=== PATIENT | female | born 1940 | race Caucasian/White ===

== ENCOUNTER 2016-09-05 09:15 | Inpatient (IN) | payer MEDICARE, OTHER ==
[~2016-09-05 09:15] MED LIST: Bisacodyl 5 MG Tab PO PRN; Lidocaine 1%/Sod Bicarbonate in NS 8.4% 1 ML Syringe IV PRN; Morphine 2 MG/ML Syringe IVPUSH PRN; Ondansetron 4 MG/2 ML SDV IVPUSH PRN; Sodium Chloride 0.9% 10 ML Syringe FLUSH PRN
[2016-09-05] MEDS ORDERED: Diphtheria,Pertussis(Acell),Tetanus Vaccine 0.5 ML SDV inactive IM ONE (10:17)
[2016-09-05] MEDS: Lactated Ringers 1,000 ML IV SCH ×2 (10:30→14:22)
--- NOTE | 2016-09-05 10:58 | PCM.PREANE ---
Preanesthetic Assessment - Anesthesia/Transfusion/Family Hx Anesthesia History: Prior Anesthesia Without Reaction Type of Anesthesia Reaction: Unknown Family History of Anesthesia Reaction: No Transfusion History: No Prior Transfusion(s) - Review of Systems General: No Symptoms Pulmonary: Shortness of Breath (pt has been worked up, negative results thus far. CXR neg), Other (BRAVO, CPAP at night) Cardiovascular: No Symptoms (able to climb flight of stairs), Other (increased lipids, chronic lower extremity edema. 2-3+ pitting edema, left worse than right ) Gastrointestinal: Other (GERD, well controlled on meds) Neurological: Other (back pain) Other: Reports: Diabetes (blood glucose 124), Thyroid Problems - Physical Assessment NPO Status Date: 09/05/16 NPO Status Time: 02:05 Pulse: 67 O2 Sat by Pulse Oximetry: 97 Respiratory Rate: 16 Blood Pressure: 161/74 Temperature: 36.0 C Height: 1.57 m Weight: 104.326 kg ASA Class: 3 Mental Status: Alert & Oriented x3 Airway Class: Mallampati = 3 Dentition: Reports: Normal Dentition Thyro-Mental Finger Breadths: 2 Mouth Opening Finger Breadths: 3 ROM/Head Extension: Limited/Partial Lungs: Clear to auscultation, Normal respiratory effort Cardiovascular: Regular Rate, Regular Rhythm - Lab Values: Laboratory Last Values PT 10.5 SECONDS (8.0-13.0) 08/31/16 12:43 INR 0.97 08/31/16 12:43 APTT 26 SECONDS (22-36) 08/31/16 12:43 MRSA (PCR) Negative 08/24/16 15:03 - Allergies Allergies/Adverse Reactions: Allergies Allergy/AdvReac Type Severity Reaction Status Date / Time amlodipine [From Norvasc] Allergy Swelling Verified 09/02/16 11:18 Beta-Blockers Allergy Cough Verified 09/02/16 11:18 (Beta-Adrenergic Bloc levofloxacin [From Levaquin] Allergy Hives Verified 09/02/16 11:18 sitagliptin Allergy Nausea Verified 09/02/16 11:18 - Blood Blood Available: No Product(s) Available: None - Anesthesia Plan Pre-Op Medication Ordered: None Beta Reyna: Atenolol Med Last Dose Date: 09/05/16 Med Last Dose Time: 07:30 - Acknowledgements Anesthesia Type Planned: Spinal Pt an Appropriate Candidate for the Planned Anesthesia: Yes Alternatives and Risks of Anesthesia Discussed w Pt/Guardian: Yes Pt/Guardian Understands and Agrees with Anesthesia Plan: Yes PreAnesthesia Questionnaire HEENT History: Reports: Impaired vision, Other (see below) Other HEENT History: throat pain Cardiovascular History: Reports: High cholesterol, Hypertension, Other (see below) Other Cardiovascular History: bradycardia, chest pain, pericardial cyst and pericardial effusion Respiratory History: Reports: Bronchitis, recurrent, Sleep apnea, SOB Other Respiratory History: dypsnea Gastrointestinal History: Reports: Colon polyp, GERD, Helicobacter pylori, Other (see below) Other Gastrointestinal History: abdominal pain Genitourinary History: Reports: Other (see below) Other Genitourinary History: CKD III, breast lump mass, vaginal leukorrhea, vaginitis 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 Musculoskeletal History: Reports: Other (see below) Other Musculoskeletal History: back ache, cericlagia, joint pain, OA, shoulder sprain, arthritis Neurological History: Reports: None Psychiatric History: Reports: None Endocrine/Metabolic History: Reports: Diabetes, type II, Hypothyroidism, Obesity /BMI 30+ Hematologic History: Reports: Other (see below) Other Hematologic History: hypokalemia Immunologic History: Reports: None Oncologic (Cancer) History: Reports: None Dermatologic History: Reports: Other (see below) Other Dermatologic History: lipomas, seborrheic dermatitis, middle R finger excsion, gangion removed from R finger - Past Surgical History Head Surgeries/Procedures: Reports: None HEENT Surgical History: Reports: Cataract surgery, Tonsillectomy GI Surgical History: Reports: Colonoscopy Female Surgical History: Reports: Breast biopsy - SUBSTANCE USE Smoking Status *Q: Never Smoker Second Hand Smoke Exposure: No Recreational Drug Use History: No - HOME MEDS Home Medications: Home Meds Aspirin [Halfprin] 81 mg PO DAILY 11/26/14 [History] Atenolol 50 mg PO DAILY 11/26/14 [History] Furosemide [Lasix] 80 mg PO BID 11/26/14 [History] Levothyroxine [Synthroid] 50 mcg PO DAILY 11/26/14 [History] Omeprazole [Prilosec] 20 mg PO DAILY 11/26/14 [History] Potassium Chloride 30 mg PO QPM 11/26/14 [History] Potassium Chloride 40 mg PO QAM 07/29/15 [History] Calcium Carb & Citrate/Vit D3 [Calcium + D3 ER Tablet] 1 tab PO BID 01/16/16 [ History] metFORMIN [Glucophage XR] 250 mg PO BID 01/16/16 [History] Albuterol [IJD: Ventolin HFA] 1 - 2 puff INH Q4H PRN 09/02/16 [History] Doxazosin Mesylate [Doxazosin Mesylate] 1 mg PO BEDTIME 09/02/16 [History] Fish Oil/[place]-3 Fatty Acids [Fish Oil 1,000 MG] 1,000 mg PO DAILY 09/02/16 [ History] Gluc HCl/Csa/Kay Hy/Hyalur Ac [Glucosamine Chondroitin] 1 cap PO BID 09/02/16 [ History] Losartan [Cozaar] 100 mg PO DAILY 09/02/16 [History] - CURRENT (IN HOUSE) MEDS Current Meds: Current Medications Aspirin (Ecotrin) 325 mg PO BID [facility] Bisacodyl (Dulcolax) 5 mg PO DAILY PRN PRN Reason: Constipation Morphine Sulfate 8 mg/Epinephrine HCl 0.3 mg/Cefuroxime Sodium 750 mg/Ketorolac Tromethamine 30 mg/Sodium Chloride 27.9 ml 0 mg .XX ONETIME ONE Stop: 09/05/16 12:01 Cyclobenzaprine HCl (Flexeril) 10 mg PO TID PRN PRN Reason: Spasms Docusate Sodium (Colace) 100 mg PO BID [facility] Famotidine (Pepcid) 20 mg PO Q12H [facility] Lactated Ringer's (Ringers, Lactated) 1,000 mls @ 125 mls/hr IV ASDIRECTED [facility] Cefazolin Sodium/Dextrose 2 gm (/ Premix) 50 mls @ 100 mls/hr IV Q8H [facility] Stop: 09/05/16 23:44 Lidocaine/Sodium Bicarbonate (Buffered Lidocaine 1% In Ns 8.4%) 0.25 ml IV ONETIME PRN PRN Reason: Prior to IV Start Stop: 09/05/16 16:00 Magnesium Hydroxide (Milk Of Magnesia) 30 ml PO BID PRN PRN Reason: Constipation Morphine Sulfate (Morphine) 2 mg IVPUSH Q2H PRN PRN Reason: Breakthrough Pain Naloxone HCl (Narcan) 0.1 mg IVPUSH Q5M PRN PRN Reason: Oversedation Stop: 09/05/16 14:16 Ondansetron HCl (Zofran) 4 mg IVPUSH Q6H PRN PRN Reason: Nausea/Vomiting Oxycodone/Acetaminophen (Percocet 325-5 Mg) 1 - 2 tab PO Q4H PRN PRN Reason: Pain Senna (Senna) 8.6 mg PO BID PRN PRN Reason: Constipation Sodium Chloride (Saline Flush) 10 ml FLUSH ASDIRECTED PRN PRN Reason: Keep Vein Open Stop: 09/05/16 18:00 Discontinued Medications Diphtheria/Tetanus/Acell Pertussis (Boostrix) 0.5 ml IM .ONCE ONE Stop: 09/05/16 10:18
[2016-09-05] MEDS ORDERED: Ondansetron 4 MG/2 ML SDV IVPUSH PRN (11:07)
[2016-09-05] MEDS ORDERED: diphenhydrAMINE 50 MG/ML SDV IVPUSH PRN (11:07)
[2016-09-05] MEDS ORDERED: Metoclopramide 10 MG/2 ML SDV IVPUSH PRN (11:07)
[2016-09-05] MEDS ORDERED: fentaNYL 100 MCG/2 ML SDV IVPUSH PRN (11:07)
[2016-09-05] MEDS ORDERED: ceFAZolin 1 GM Vial ONE (11:31)
[2016-09-05] MEDS ORDERED: fentaNYL 100 MCG/2 ML SDV ONE (11:37)
[2016-09-05] MEDS ORDERED: Propofol 200 MG/20 ML SDV ONE ×5 (11:37→13:28)
[2016-09-05] MEDS ORDERED: Midazolam 1 MG/ML 2 ML SDV ONE (11:37)
[2016-09-05] MEDS ORDERED: Morphine PF 10 MG/10 ML SDV ONE (11:39)
[2016-09-05] MEDS ORDERED: Scopolamine 1.5 MG Transdermal Patch TOP SCH (11:45)
[2016-09-05] MEDS ORDERED: HYDROmorphone 0.5 MG/0.5 ML Syringe IVPUSH PRN (12:15)
[2016-09-05] MEDS: Bupivacaine 0.25% 30 ML SDV ONE ×2 (12:54→13:28)
[2016-09-05] MEDS: Morphine 8 MG, EPINEPHrine 0.3 MG, Cefuroxime 750 MG, Ketorolac 30 MG, Sodium Chloride ... ONE ×15 (12:55→17:47)
[2016-09-05] MEDS: Iodine/Sodium Iodide 2% Tincture 30 ML Bottle ONE ×2 (12:55→13:22)
[2016-09-05] MEDS ORDERED: Lactated Ringers 1,000 ML ONE (12:56)
[2016-09-05] MEDS: ceFAZolin 1 GM Vial ONE ×2 (12:57→13:25)
[2016-09-05] MEDS ORDERED: Albuterol 6.7 GM Inhaler INH PRN (13:31)
[2016-09-05] MEDS ORDERED: Naloxone 0.4 MG/ML SDV IVPUSH PRN (14:00)
--- NOTE | 2016-09-05 14:12 | PCM.POSTAN ---
POST ANESTHESIA ASSESSMENT - MENTAL STATUS Mental Status: alert, oriented - VITAL SIGNS Pulse Rate: 77 SaO2: 94 Resp Rate: 16 Blood Pressure: 106/51 Temperature: 36.5 C - RESPIRATORY Respiratory Status: respiratory rate WNL, airway patent, O2 saturation stable, supplemental oxygen - CARDIOVASCULAR CV Status: pulse rate WNL, blood pressure stable - GASTROINTESTINAL GI Status: no symptoms - PAIN Pain Score: 0 - POST OP HYDRATION Hydration Status: adequate & stable
--- NOTE | 2016-09-05 14:40 | CR ---
Left knee: AP and lateral views of the left knee were obtained. Comparison: No previous knee exam. Knee prosthesis is seen. Components are aligned. Underlying bony structures are intact. Soft tissue air is noted. Air noted within the joint. Impression: 1. Satisfactory postoperative radiographic appearance of recently placed left knee prosthesis. Diagnostic code #2
--- NOTE | 2016-09-05 16:50 | PCM.CONSN ---
- General Info Date of Service: 09/05/16 Admission Dx/Problem (Free Text): 76 year old female PMH: HTN, DM, CKD stage II, GERD, hypolipidemia, morbid obesity is post op, s/p left total hip arthroplasty. The patient is very nauseated. Hospitalist service is assisting with medical management and chronic health related concerns outside of the realm of orthopedics Functional Status: Reports: pain controlled, urinating - Review of Systems General: Reports: No Symptoms HEENT: Reports: no symptoms Pulmonary: Reports: no symptoms Cardiovascular: Reports: No Symptoms Gastrointestinal: Reports: Nausea, Vomiting Genitourinary: Reports: no symptoms Musculoskeletal: Reports: no symptoms Skin: Reports: no symptoms Neurological: Reports: No Symptoms Psychiatric: Reports: no symptoms - Patient Data Vitals - most recent: Last Vital Signs Temp 36.2 C 09/05/16 14:19 Pulse 73 09/05/16 15:03 Resp 14 09/05/16 15:03 BP 138/67 09/05/16 15:03 Pulse Ox 95 09/05/16 15:03 Weight - most recent: 102.512 kg I&O - last 24 hours: Intake & Output 09/05/16 09/05/16 09/05/16 06:59 14:59 22:59 Intake Total 310 Output Total 50 Balance -50 310 Lab Results last 24 hrs: Laboratory Results - last 24 hr 09/05/16 09/05/16 09/05/16 Range/Units 10:52 11:01 14:36 Sodium 143 (136-145) mEq/L Potassium 4.0 (3.5-5.1) mEq/L Chloride 105 (98-107) mEq/L Carbon Dioxide 28 (21-32) mEq/L Anion Gap 14.0 (5-15) BUN 18 (7-18) mg/dL Creatinine 1.0 (0.55-1.02) mg/dL Est Cr Clr Drug Dosing 38.44 mL/min Estimated GFR (MDRD) 54 (>60) mL/min BUN/Creatinine Ratio 18.0 (14-18) Glucose 131 H (83-115) mg/dL POC Glucose 124 H 122 H (83-110) mg/dL Calcium 9.9 (8.5-10.1) mg/dL Med Orders - Current: Current Medications Albuterol (Proventil Hfa) 1 - 2 gm INH Q4H PRN PRN Reason: Shortness of Breath Aspirin (Ecotrin) 325 mg PO BID [facility] Atenolol (Tenormin) 50 mg PO DAILY [facility] Bisacodyl (Dulcolax) 5 mg PO DAILY PRN PRN Reason: Constipation Calcium Carbonate (Calcium Carbonate/Vitamin D 1500 Mg-200 Unit) 1 tab PO BID [facility] Cyclobenzaprine HCl (Flexeril) 10 mg PO TID PRN PRN Reason: Spasms Diphenhydramine HCl (Benadryl) 25 mg IVPUSH Q6H PRN PRN Reason: itching Stop: 09/05/16 18:00 Docusate Sodium (Colace) 100 mg PO BID [facility] Doxazosin Mesylate (Cardura) 1 mg PO BEDTIME [facility] Furosemide (Lasix) 80 mg PO BID [facility] Cefazolin Sodium/Dextrose 2 gm (/ Premix) 50 mls @ 100 mls/hr IV Q8H [facility] Stop: 09/06/16 11:59 Promethazine HCl 12.5 mg/ (Sodium Chloride) 50.5 mls @ 100 mls/hr IV Q6H [facility] Levothyroxine Sodium (Synthroid) 50 mcg PO DAILY [facility] Losartan Potassium (Cozaar) 100 mg PO DAILY [facility] Magnesium Hydroxide (Milk Of Magnesia) 30 ml PO BID PRN PRN Reason: Constipation Metformin HCl (Glucophage) 250 mg PO BID [facility] Miscellaneous Information (Remove Patch) 0 ea TRDERM ONETIME ONE Stop: 09/08/16 11:46 Morphine Sulfate (Morphine) 2 mg IVPUSH Q2H PRN PRN Reason: Breakthrough Pain Ondansetron HCl (Zofran) 4 mg IVPUSH Q6H PRN PRN Reason: Nausea/Vomiting Ondansetron HCl (Zofran) 4 mg IVPUSH ONETIME PRN PRN Reason: Nausea/Vomiting Stop: 09/05/16 18:00 Last Admin: 09/05/16 15:13 Dose: 4 mg Oxycodone/Acetaminophen (Percocet 325-5 Mg) 1 - 2 tab PO Q4H PRN PRN Reason: Pain Pantoprazole Sodium (Protonix) 40 mg PO DAILY [facility] Potassium Chloride (Klor-Con 10) 30 meq PO QPM [facility] Potassium Chloride (Klor-Con M20) 40 meq PO QAM [facility] Scopolamine (Transderm-Scop) 1.5 mg TOP ONETIME [facility] Stop: 09/05/16 18:00 Last Admin: 09/05/16 11:55 Dose: 1.5 mg Senna (Senna) 8.6 mg PO BID PRN PRN Reason: Constipation Sodium Chloride (Saline Flush) 10 ml FLUSH ASDIRECTED PRN PRN Reason: Keep Vein Open Stop: 09/05/16 18:00 Discontinued Medications Bupivacaine HCl (Marcaine 0.25%) Confirm Administered Dose 30 ml .ROUTE .STK- MED ONE Stop: 09/05/16 11:32 Last Admin: 09/05/16 13:28 Dose: 30 ml Cefazolin Sodium (Ancef) Confirm Administered Dose 2 gm .ROUTE .STK-MED ONE Stop: 09/05/16 11:37 Last Admin: 09/05/16 13:25 Dose: 2 gm Cefazolin Sodium (Ancef) Confirm Administered Dose 2 gm .ROUTE .STK-MED ONE Stop: 09/05/16 11:32 Morphine Sulfate 8 mg/Epinephrine HCl 0.3 mg/Cefuroxime Sodium 750 mg/Ketorolac Tromethamine 30 mg/Sodium Chloride 27.9 ml 0 mg .XX ONETIME ONE Stop: 09/05/16 12:01 Last Admin: 09/05/16 13:28 Dose: 788.3 mg Diphtheria/Tetanus/Acell Pertussis (Boostrix) 0.5 ml IM .ONCE ONE Stop: 09/05/16 10:18 Famotidine (Pepcid) 20 mg PO Q12H [facility] Fentanyl (Sublimaze) 50 mcg IVPUSH Q5M PRN PRN Reason: pain Stop: 09/05/16 18:00 Fentanyl (Sublimaze) Confirm Administered Dose 100 mcg .ROUTE .STK-MED ONE Stop: 09/05/16 11:38 Hydromorphone HCl (Dilaudid) 0.5 mg IVPUSH Q15M PRN PRN Reason: Pain (severe 7-10) Stop: 09/05/16 12:31 Lactated Ringer's (Ringers, Lactated) 1,000 mls @ 125 mls/hr IV ASDIRECTED [facility] Last Admin: 09/05/16 14:22 Dose: 125 mls/hr Lactated Ringer's (Ringers, Lactated) Confirm Administered Dose 1,000 mls @ as directed .ROUTE .STK-MED ONE Stop: 09/05/16 12:57 Iodine (Iodine 2% Mild Tincture) Confirm Administered Dose 30 ml .ROUTE .STK- MED ONE Stop: 09/05/16 11:32 Last Admin: 09/05/16 13:22 Dose: 18 ml Lidocaine/Sodium Bicarbonate (Buffered Lidocaine 1% In Ns 8.4%) 0.25 ml IV ONETIME PRN PRN Reason: Prior to IV Start Stop: 09/05/16 16:00 Last Admin: 09/05/16 10:29 Dose: 0.25 ml Metoclopramide HCl (Reglan) 10 mg IVPUSH ONETIME PRN PRN Reason: Nausea/Vomiting Stop: 09/05/16 18:00 Midazolam HCl (Versed 1 Mg/Ml) Confirm Administered Dose 2 mg .ROUTE .STK-MED ONE Stop: 09/05/16 11:38 Morphine Sulfate (Duramorph Pf) Confirm Administered Dose 10 mg .ROUTE .STK-MED ONE Stop: 09/05/16 11:40 Naloxone HCl (Narcan) 0.1 mg IVPUSH Q5M PRN PRN Reason: Oversedation Stop: 09/05/16 14:16 Propofol (Diprivan 20 Ml) Confirm Administered Dose 200 mg .ROUTE .STK-MED ONE Stop: 09/05/16 11:38 Propofol (Diprivan 20 Ml) Confirm Administered Dose 200 mg .ROUTE .STK-MED ONE Stop: 09/05/16 11:40 Propofol (Diprivan 20 Ml) Confirm Administered Dose 200 mg .ROUTE .STK-MED ONE Stop: 09/05/16 12:29 Propofol (Diprivan 20 Ml) Confirm Administered Dose 200 mg .ROUTE .STK-MED ONE Stop: 09/05/16 12:29 Propofol (Diprivan 20 Ml) Confirm Administered Dose 200 mg .ROUTE .STK-MED ONE Stop: 09/05/16 13:29 Tranexamic Acid (Cyklokapron) Confirm Administered Dose 1,000 mg .ROUTE .STK- MED ONE Stop: 09/05/16 11:32 Last Admin: 09/05/16 12:56 Dose: 1,000 mg - Exam Quality Assessment: DVT prophylaxis General: alert, oriented, no acute distress HEENT: Pupils equal, Pupils reactive, EOMI Neck: supple, trachea midline, no JVD Lungs: Normal respiratory effort, Decreased breath sounds Cardiovascular: Regular Rate, Regular Rhythm Abdomen: bowel sounds present, soft, no tenderness, no distension (Female) Exam: Deferred Back Exam: normal inspection Extremities: normal pulses Skin: warm Wound/Incisions: dressing dry and intact Neurological: no new focal deficit Psy/Mental Status: alert, normal affect, normal mood Consult PN Assessment/Plan POD#: 0 Procedures: Procedures ASSAY OF TROPONIN QUANT (11/26/14) CO/MEMBANE DIFFUSE CAPACITY (12/26/14) COMP SCREEN MAMMOGRAM ADD-ON (09/07/15) COMPLETE CBC W/AUTO DIFF WBC (01/16/16) COMPREHEN METABOLIC PANEL (11/26/14) CT ABD & PELV W/CONTRAST (04/16/15) CT ANGIOGRAPHY CHEST (12/17/14) CT HEAD/BRAIN W/O DYE (11/26/14) DXA BONE DENSITY AXIAL (09/07/15) ELECTROCARDIOGRAM TRACING (11/26/14) EMERGENCY DEPT VISIT (01/16/16) EVALUATION OF WHEEZING (12/26/14) EXTREMITY STUDY (01/16/16) FIBRIN DEGRADATION QUANT (01/16/16) METABOLIC PANEL TOTAL CA (01/16/16) ROUTINE VENIPUNCTURE (01/16/16) THER/PROPH/DIAG INJ IV PUSH (11/26/14) TX/PRO/DX INJ NEW DRUG ADDON (11/26/14) ULTRASOUND BREAST LIMITED (08/16/16) URINALYSIS AUTO W/SCOPE (11/26/14) Problem List Initiated/Reviewed/Updated: Yes My Orders last 24 hours: My Active Orders 09/05/16 16:45 Promethazine [Phenergan] 12.5 mg Sodium Chloride 0.9% [Normal Saline] 50 ml IV Q6H Plan: Impression: POST OP DAY 0 Left total knee arthroplasty, history of OA Acute post op nausea Chronic HTN DM II CKD II Hyperlipidemia GERD Plan: Schedule anti-emetics ATC and prn PT/OT SW/CM IS/RT Pain mgt/DVT prophylaxis Home meds DC planning
[2016-09-05] MEDS: Promethazine 12.5 MG in Sodium Chloride 0.9% 50 ML IV SCH ×2 (17:45→22:44)
[2016-09-05] MEDS: Potassium Chloride 10 MEQ Tab.ER PO SCH (17:49)
[2016-09-05] MEDS: ceFAZolin 2 GM in Premix Bag 1 BAG IV SCH (19:26)
[2016-09-05] MEDS ORDERED: Famotidine 20 MG Tab PO SCH (21:00)
[2016-09-05] MEDS ORDERED: Sennosides 8.6 MG Tab PO PRN (21:00)
[2016-09-05] MEDS ORDERED: Magnesium Hydroxide 400 MG/5 ML Susp 30 ML Cup PO PRN (21:00)
[2016-09-05] MEDS: Docusate Sodium 100 MG Cap PO SCH (21:13)
[2016-09-05] MEDS: Calcium Carbonate/Vitamin D3 1500 MG-200 Units Tab PO SCH (21:13)
[2016-09-05] MEDS: Furosemide 80 MG Tab PO SCH (21:13)
[2016-09-05] MEDS: metFORMIN 500 MG Tab PO SCH (21:14)
[2016-09-05] MEDS: Doxazosin 2 MG Tab PO SCH (21:14)
[2016-09-05] MEDS: Acetaminophen/oxyCODONE 325-5 MG Tab PO PRN (22:52)
[2016-09-06] MEDS: ceFAZolin 2 GM in Premix Bag 1 BAG IV SCH ×2 (03:13→11:20)
[2016-09-06] MEDS: Acetaminophen/oxyCODONE 325-5 MG Tab PO PRN ×3 (04:54→17:50)
[2016-09-06] MEDS: Promethazine 12.5 MG in Sodium Chloride 0.9% 50 ML IV SCH (04:55)
--- NOTE | 2016-09-06 06:45 | PCM.CONSN ---
- General Info Date of Service: 09/06/16 Admission Dx/Problem (Free Text): S/P Lt TKA with Dr. Amezcua Pain under fair control, nausea continues this morning - worse after exertion and up to chair. Intermittent hypoxia this morning, attempting to wean from O2. Working with PT/OT. Plans for DC home with family. Hgb 11.4 this am. Functional Status: Reports: pain controlled, tolerating diet, ambulating, urinating. Denies: new symptoms - Review of Systems General: Reports: No Symptoms HEENT: Reports: no symptoms Pulmonary: Reports: no symptoms. Denies: shortness of breath, cough Cardiovascular: Reports: No Symptoms, Lightheadedness. Denies: Chest Pain, Dyspnea on Exertion Gastrointestinal: Reports: No symptoms Genitourinary: Reports: no symptoms Musculoskeletal: Reports: leg pain Skin: Reports: no symptoms Neurological: Reports: No Symptoms Psychiatric: Reports: no symptoms - Patient Data Vitals - most recent: Last Vital Signs Temp 97.0 F 09/06/16 03:22 Pulse 50 L 09/06/16 03:22 Resp 16 09/06/16 04:56 BP 128/50 L 09/06/16 03:22 Pulse Ox 96 09/06/16 04:56 Weight - most recent: 226 lb I&O - last 24 hours: Intake & Output 09/05/16 09/05/16 09/06/16 14:59 22:59 06:59 Intake Total 310 900 Output Total 50 100 300 Balance -50 210 600 Lab Results last 24 hrs: Laboratory Results - last 24 hr 09/05/16 09/05/16 09/05/16 Range/Units 10:52 11:01 14:36 Sodium 143 (136-145) mEq/L Potassium 4.0 (3.5-5.1) mEq/L Chloride 105 (98-107) mEq/L Carbon Dioxide 28 (21-32) mEq/L Anion Gap 14.0 (5-15) BUN 18 (7-18) mg/dL Creatinine 1.0 (0.55-1.02) mg/dL Est Cr Clr Drug Dosing 38.44 mL/min Estimated GFR (MDRD) 54 (>60) mL/min BUN/Creatinine Ratio 18.0 (14-18) Glucose 131 H (83-115) mg/dL POC Glucose 124 H 122 H (83-110) mg/dL Calcium 9.9 (8.5-10.1) mg/dL Med Orders - Current: Current Medications Albuterol (Proventil Hfa) 1 - 2 gm INH Q4H PRN PRN Reason: Shortness of Breath Aspirin (Ecotrin) 325 mg PO BID [facility] Atenolol (Tenormin) 50 mg PO DAILY [facility] Bisacodyl (Dulcolax) 5 mg PO DAILY PRN PRN Reason: Constipation Calcium Carbonate (Calcium Carbonate/Vitamin D 1500 Mg-200 Unit) 1 tab PO BID [facility] Last Admin: 09/05/16 21:13 Dose: 1 tab Cyclobenzaprine HCl (Flexeril) 10 mg PO TID PRN PRN Reason: Spasms Docusate Sodium (Colace) 100 mg PO BID [facility] Last Admin: 09/05/16 21:13 Dose: 100 mg Doxazosin Mesylate (Cardura) 1 mg PO BEDTIME [facility] Last Admin: 09/05/16 21:14 Dose: 1 mg Furosemide (Lasix) 80 mg PO BID [facility] Last Admin: 09/05/16 21:13 Dose: 80 mg Cefazolin Sodium/Dextrose 2 gm (/ Premix) 50 mls @ 100 mls/hr IV Q8H [facility] Stop: 09/06/16 11:59 Last Admin: 09/06/16 03:13 Dose: 100 mls/hr Promethazine HCl 12.5 mg/ (Sodium Chloride) 50.5 mls @ 100 mls/hr IV Q6H [facility] Last Admin: 09/06/16 04:55 Dose: 100 mls/hr Levothyroxine Sodium (Synthroid) 50 mcg PO DAILY [facility] Losartan Potassium (Cozaar) 100 mg PO DAILY [facility] Magnesium Hydroxide (Milk Of Magnesia) 30 ml PO BID PRN PRN Reason: Constipation Metformin HCl (Glucophage) 250 mg PO BID [facility] Last Admin: 09/05/16 21:14 Dose: 250 mg Miscellaneous Information (Remove Patch) 0 ea TRDERM ONETIME ONE Stop: 09/08/16 11:46 Morphine Sulfate (Morphine) 2 mg IVPUSH Q2H PRN PRN Reason: Breakthrough Pain Ondansetron HCl (Zofran) 4 mg IVPUSH Q6H PRN PRN Reason: Nausea/Vomiting Oxycodone/Acetaminophen (Percocet 325-5 Mg) 1 - 2 tab PO Q4H PRN PRN Reason: Pain Last Admin: 09/06/16 04:54 Dose: 2 tab Pantoprazole Sodium (Protonix) 40 mg PO DAILY [facility] Potassium Chloride (Klor-Con 10) 30 meq PO QPM [facility] Last Admin: 09/05/16 17:49 Dose: Not Given Potassium Chloride (Klor-Con M20) 40 meq PO QAM [facility] Senna (Senna) 8.6 mg PO BID PRN PRN Reason: Constipation Discontinued Medications Bupivacaine HCl (Marcaine 0.25%) Confirm Administered Dose 30 ml .ROUTE .STK- MED ONE Stop: 09/05/16 11:32 Last Admin: 09/05/16 13:28 Dose: 30 ml Cefazolin Sodium (Ancef) Confirm Administered Dose 2 gm .ROUTE .STK-MED ONE Stop: 09/05/16 11:37 Last Admin: 09/05/16 13:25 Dose: 2 gm Cefazolin Sodium (Ancef) Confirm Administered Dose 2 gm .ROUTE .STK-MED ONE Stop: 09/05/16 11:32 Morphine Sulfate 8 mg/Epinephrine HCl 0.3 mg/Cefuroxime Sodium 750 mg/Ketorolac Tromethamine 30 mg/Sodium Chloride 27.9 ml 0 mg .XX ONETIME ONE Stop: 09/05/16 12:01 Last Admin: 09/05/16 17:47 Dose: Not Given Diphenhydramine HCl (Benadryl) 25 mg IVPUSH Q6H PRN PRN Reason: itching Stop: 09/05/16 18:00 Diphtheria/Tetanus/Acell Pertussis (Boostrix) 0.5 ml IM .ONCE ONE Stop: 09/05/16 10:18 Last Admin: 09/05/16 17:48 Dose: Not Given Famotidine (Pepcid) 20 mg PO Q12H [facility] Fentanyl (Sublimaze) 50 mcg IVPUSH Q5M PRN PRN Reason: pain Stop: 09/05/16 18:00 Fentanyl (Sublimaze) Confirm Administered Dose 100 mcg .ROUTE .STK-MED ONE Stop: 09/05/16 11:38 Hydromorphone HCl (Dilaudid) 0.5 mg IVPUSH Q15M PRN PRN Reason: Pain (severe 7-10) Stop: 09/05/16 12:31 Lactated Ringer's (Ringers, Lactated) 1,000 mls @ 125 mls/hr IV ASDIRECTED [facility] Last Admin: 09/05/16 14:22 Dose: 125 mls/hr Lactated Ringer's (Ringers, Lactated) Confirm Administered Dose 1,000 mls @ as directed .ROUTE .STK-MED ONE Stop: 09/05/16 12:57 Iodine (Iodine 2% Mild Tincture) Confirm Administered Dose 30 ml .ROUTE .STK- MED ONE Stop: 09/05/16 11:32 Last Admin: 09/05/16 13:22 Dose: 18 ml Lidocaine/Sodium Bicarbonate (Buffered Lidocaine 1% In Ns 8.4%) 0.25 ml IV ONETIME PRN PRN Reason: Prior to IV Start Stop: 09/05/16 16:00 Last Admin: 09/05/16 10:29 Dose: 0.25 ml Metoclopramide HCl (Reglan) 10 mg IVPUSH ONETIME PRN PRN Reason: Nausea/Vomiting Stop: 09/05/16 18:00 Midazolam HCl (Versed 1 Mg/Ml) Confirm Administered Dose 2 mg .ROUTE .STK-MED ONE Stop: 09/05/16 11:38 Morphine Sulfate (Duramorph Pf) Confirm Administered Dose 10 mg .ROUTE .STK-MED ONE Stop: 09/05/16 11:40 Naloxone HCl (Narcan) 0.1 mg IVPUSH Q5M PRN PRN Reason: Oversedation Stop: 09/05/16 14:16 Ondansetron HCl (Zofran) 4 mg IVPUSH ONETIME PRN PRN Reason: Nausea/Vomiting Stop: 09/05/16 18:00 Last Admin: 09/05/16 15:13 Dose: 4 mg Propofol (Diprivan 20 Ml) Confirm Administered Dose 200 mg .ROUTE .STK-MED ONE Stop: 09/05/16 11:38 Propofol (Diprivan 20 Ml) Confirm Administered Dose 200 mg .ROUTE .STK-MED ONE Stop: 09/05/16 11:40 Propofol (Diprivan 20 Ml) Confirm Administered Dose 200 mg .ROUTE .STK-MED ONE Stop: 09/05/16 12:29 Propofol (Diprivan 20 Ml) Confirm Administered Dose 200 mg .ROUTE .STK-MED ONE Stop: 09/05/16 12:29 Propofol (Diprivan 20 Ml) Confirm Administered Dose 200 mg .ROUTE .STK-MED ONE Stop: 09/05/16 13:29 Scopolamine (Transderm-Scop) 1.5 mg TOP ONETIME [facility] Stop: 09/05/16 18:00 Last Admin: 09/05/16 11:55 Dose: 1.5 mg Sodium Chloride (Saline Flush) 10 ml FLUSH ASDIRECTED PRN PRN Reason: Keep Vein Open Stop: 09/05/16 18:00 Tranexamic Acid (Cyklokapron) Confirm Administered Dose 1,000 mg .ROUTE .STK- MED ONE Stop: 09/05/16 11:32 Last Admin: 09/05/16 12:56 Dose: 1,000 mg - Exam Quality Assessment: DVT prophylaxis General: alert, oriented, cooperative, mild distress (nausea with activity) HEENT: Pupils equal, Pupils reactive, EOMI, Mucous membr. moist/pink Neck: supple Lungs: Clear to auscultation, Normal respiratory effort Cardiovascular: Regular Rate, Regular Rhythm Abdomen: bowel sounds present, soft, no tenderness, other (nausea) (Female) Exam: Deferred Extremities: no calf tenderness, other (teds/SCDs bilat, ice to lt knee) Peripheral Pulses: 1+: dorsalis pedis (L), dorsalis pedis (R) Skin: warm, dry Neurological: no new focal deficit Psy/Mental Status: alert, normal affect, normal mood Consult PN Assessment/Plan POD#: 1 Procedures: Procedures ASSAY OF TROPONIN QUANT (11/26/14) CO/MEMBANE DIFFUSE CAPACITY (12/26/14) COMP SCREEN MAMMOGRAM ADD-ON (09/07/15) COMPLETE CBC W/AUTO DIFF WBC (01/16/16) COMPREHEN METABOLIC PANEL (11/26/14) CT ABD & PELV W/CONTRAST (04/16/15) CT ANGIOGRAPHY CHEST (12/17/14) CT HEAD/BRAIN W/O DYE (11/26/14) DXA BONE DENSITY AXIAL (09/07/15) ELECTROCARDIOGRAM TRACING (11/26/14) EMERGENCY DEPT VISIT (01/16/16) EVALUATION OF WHEEZING (12/26/14) EXTREMITY STUDY (01/16/16) FIBRIN DEGRADATION QUANT (01/16/16) METABOLIC PANEL TOTAL CA (01/16/16) ROUTINE VENIPUNCTURE (01/16/16) THER/PROPH/DIAG INJ IV PUSH (11/26/14) TX/PRO/DX INJ NEW DRUG ADDON (11/26/14) ULTRASOUND BREAST LIMITED (08/16/16) URINALYSIS AUTO W/SCOPE (11/26/14) (1) S/P total knee arthroplasty SNOMED Code(s): 8074790966571, 632049430, 1111114866782 Code(s): Z96.659 - PRESENCE OF UNSPECIFIED ARTIFICIAL KNEE JOINT Priority: High Current Visit: Yes Qualifiers: Laterality: left Qualified Code(s): Z96.652 - Presence of left artificial knee joint (2) Osteoarthritis SNOMED Code(s): 193726897 Code(s): M19.90 - UNSPECIFIED OSTEOARTHRITIS, UNSPECIFIED SITE Priority: High Current Visit: Yes Qualifiers: Osteoarthritis location: knee Osteoarthritis type: primary Laterality: left Qualified Code(s): M17.12 - Unilateral primary osteoarthritis, left knee (3) HTN (hypertension) SNOMED Code(s): 28884281 Code(s): I10 - ESSENTIAL (PRIMARY) HYPERTENSION Priority: Medium Current Visit: No Qualifiers: Hypertension type: essential hypertension Qualified Code(s): I10 - Essential (primary) hypertension (4) HLD (hyperlipidemia) SNOMED Code(s): 94877988 Code(s): E78.5 - HYPERLIPIDEMIA, UNSPECIFIED Priority: Medium Current Visit: No Qualifiers: Hyperlipidemia type: unspecified Qualified Code(s): E78.5 - Hyperlipidemia , unspecified (5) GERD (gastroesophageal reflux disease) SNOMED Code(s): 740901062 Code(s): K21.9 - GASTRO-ESOPHAGEAL REFLUX DISEASE WITHOUT ESOPHAGITIS Priority: Medium Current Visit: No Qualifiers: Esophagitis presence: esophagitis presence not specified Qualified Code(s) : K21.9 - Gastro-esophageal reflux disease without esophagitis (6) Type 2 diabetes mellitus SNOMED Code(s): 97728060 Code(s): E11.9 - TYPE 2 DIABETES MELLITUS WITHOUT COMPLICATIONS Priority: Medium Current Visit: No Qualifiers: Diabetes mellitus complication status: without complication Diabetes mellitus snf insulin use: without snf use Qualified Code(s): E11.9 - Type 2 diabetes mellitus without complications (7) CKD (chronic kidney disease) SNOMED Code(s): 644676798 Code(s): N18.9 - CHRONIC KIDNEY DISEASE, UNSPECIFIED Priority: Medium Current Visit: No Qualifiers: Chronic kidney disease stage: stage 2 (mild) Qualified Code(s): N18.2 - Chronic kidney disease, stage 2 (mild) (8) Postoperative nausea SNOMED Code(s): 27463316 Code(s): R11.0 - NAUSEA; Z98.890 - OTHER SPECIFIED POSTPROCEDURAL STATES Priority: High Current Visit: Yes Problem List Initiated/Reviewed/Updated: Yes Plan: I/P: S/P Lt TKA with Dr. Amezcua: POD #1 -Pain managment and DVT prophylax per primary team- Ortho -ASA 325mg BID -Teds/SCD's -PT/OT -Hgb 11.4 -IS, C&DB- cont attempts to wean supplemental oxygen Postoperative nausea -scopolamine patch -phenergan minimal improvement -Zofran Chronic conditions: stable, cont home meds HTN HLD GERD DM CKD Other: GI prophylax CM/SW for DC planning; likely discharge tomorrow due to postoperative nausea, hypoxia, has been unable to work with PT yet today due to nausea. Patient is full code.
[2016-09-06] MEDS: Cyclobenzaprine 10 MG Tab PO PRN ×2 (08:01→15:56)
[2016-09-06] MEDS: Potassium Chloride 20 MEQ Tab.ER PO SCH (08:01)
[2016-09-06] MEDS: metFORMIN 500 MG Tab PO SCH ×2 (08:02→20:56)
[2016-09-06] MEDS: Pantoprazole 40 MG Tab.CR PO SCH (08:03)
[2016-09-06] MEDS: Aspirin 325 MG Tab.EC PO SCH ×2 (08:03→20:52)
[2016-09-06] MEDS: Calcium Carbonate/Vitamin D3 1500 MG-200 Units Tab PO SCH ×2 (08:03→20:52)
[2016-09-06] MEDS: Docusate Sodium 100 MG Cap PO SCH ×2 (08:03→20:52)
[2016-09-06] MEDS: Furosemide 80 MG Tab PO SCH ×2 (08:03→20:56)
[2016-09-06] MEDS: Levothyroxine 50 MCG Tab PO SCH (08:11)
--- NOTE | 2016-09-06 09:15 | PCM48HPAN ---
Post Anesthesia Note - EVALUATION WITHIN 48HRS OF ANESTHETIC Vital Signs in Normal Range: Yes Patient Participated in Evaluation: Yes Respiratory Function Stable: Yes Airway Patent: Yes Cardiovascular Function Stable: Yes Hydration Status Stable: Yes Pain Control Satisfactory: Yes Nausea and Vomiting Control Satisfactory: Yes Mental Status Recovered: Yes - COMMENTS/OBSERVATIONS Free Text/Narrative:: Patient denies any c/o at this time.
[2016-09-06] MEDS: Losartan 100 MG Tab PO SCH (10:08)
[2016-09-06] MEDS: Atenolol 50 MG Tab PO SCH (10:09)
--- NOTE | 2016-09-06 10:56 | PCM.SURGPN ---
- General Info Date of Service: 09/06/16 POD#: 1 Functional Status: Reports: other (Nursing reports the pt has been nauseated. ) - Review of Systems Musculoskeletal: Reports: other (The pt has been slow to progress with therapy due to nausea. ) - Patient Data Vitals - most recent: Last Vital Signs Temp 97.7 F 09/06/16 07:49 Pulse 55 L 09/06/16 10:09 Resp 16 09/06/16 07:00 BP 100/54 L 09/06/16 10:09 Pulse Ox 90 L 09/06/16 07:50 Weight - most recent: 226 lb I&O - last 24 hours: Intake & Output 09/05/16 09/06/16 09/06/16 22:59 06:59 14:59 Intake Total 310 900 120 Output Total 100 300 Balance 210 600 120 Lab Results last 24 hrs: Laboratory Results - last 24 hr 09/05/16 09/05/16 09/06/16 Range/Units 11:01 14:36 06:40 WBC 8.63 (3.98-10.04) K/mm3 RBC 3.72 L (3.98-5.22) M/mm3 Hgb 11.4 (11.2-15.7) gm/L Hct 35.4 (34.1-44.9) % MCV 95.2 H (79.4-94.8) fl MCH 30.6 (25.6-32.2) pg MCHC 32.2 (32.2-35.5) g/dl RDW Std Deviation 43.0 (36.4-46.3) fL Plt Count 221 (182-369) K/mm3 MPV 9.9 (9.4-12.3) fl Neut % (Auto) 79.8 H (34.0-71.1) % Lymph % (Auto) 9.7 L (19.3-51.7) % [place] % (Auto) 8.5 (4.7-12.5) % Eos % (Auto) 1.7 (0.7-5.8) Baso % (Auto) 0.1 (0.1-1.2) % Neut # (Auto) 6.88 H (1.56-6.13) K/mm3 Lymph # (Auto) 0.84 L (1.18-3.74) K/mm3 [place] # (Auto) 0.73 H (0.24-0.36) K/mm3 Eos # (Auto) 0.15 (0.04-0.36) K/mm3 Baso # (Auto) 0.01 (0.01-0.08) K/mm3 Manual Slide Review Abnormal smear Sodium 143 (136-145) mEq/L Potassium 4.0 (3.5-5.1) mEq/L Chloride 105 (98-107) mEq/L Carbon Dioxide 28 (21-32) mEq/L Anion Gap 14.0 (5-15) BUN 18 (7-18) mg/dL Creatinine 1.0 (0.55-1.02) mg/dL Est Cr Clr Drug Dosing 38.44 mL/min Estimated GFR (MDRD) 54 (>60) mL/min BUN/Creatinine Ratio 18.0 (14-18) Glucose 131 H (83-115) mg/dL POC Glucose 122 H (83-110) mg/dL Calcium 9.9 (8.5-10.1) mg/dL Total Bilirubin (0.2-1.0) mg/dL AST (15-37) U/L ALT (14-59) U/L Alkaline Phosphatase (46-116) U/L Total Protein (6.4-8.2) g/dl Albumin (3.4-5.0) g/dl Globulin gm/dL Albumin/Globulin Ratio (1-2) 09/06/16 Range/Units 06:40 WBC (3.98-10.04) K/mm3 RBC (3.98-5.22) M/mm3 Hgb (11.2-15.7) gm/L Hct (34.1-44.9) % MCV (79.4-94.8) fl MCH (25.6-32.2) pg MCHC (32.2-35.5) g/dl RDW Std Deviation (36.4-46.3) fL Plt Count (182-369) K/mm3 MPV (9.4-12.3) fl Neut % (Auto) (34.0-71.1) % Lymph % (Auto) (19.3-51.7) % [place] % (Auto) (4.7-12.5) % Eos % (Auto) (0.7-5.8) Baso % (Auto) (0.1-1.2) % Neut # (Auto) (1.56-6.13) K/mm3 Lymph # (Auto) (1.18-3.74) K/mm3 [place] # (Auto) (0.24-0.36) K/mm3 Eos # (Auto) (0.04-0.36) K/mm3 Baso # (Auto) (0.01-0.08) K/mm3 Manual Slide Review Sodium 142 (136-145) mEq/L Potassium 3.5 (3.5-5.1) mEq/L Chloride 106 (98-107) mEq/L Carbon Dioxide 31 (21-32) mEq/L Anion Gap 8.5 (5-15) BUN 17 (7-18) mg/dL Creatinine 1.2 H (0.55-1.02) mg/dL Est Cr Clr Drug Dosing 32.04 mL/min Estimated GFR (MDRD) 44 (>60) mL/min BUN/Creatinine Ratio 14.2 (14-18) Glucose 134 H (83-115) mg/dL POC Glucose (83-110) mg/dL Calcium 8.9 (8.5-10.1) mg/dL Total Bilirubin 0.5 (0.2-1.0) mg/dL AST 13 L (15-37) U/L ALT 23 (14-59) U/L Alkaline Phosphatase 66 (46-116) U/L Total Protein 5.9 L (6.4-8.2) g/dl Albumin 3.0 L (3.4-5.0) g/dl Globulin 2.9 gm/dL Albumin/Globulin Ratio 1.0 (1-2) Med Orders - Current: Current Medications Albuterol (Proventil Hfa) 1 - 2 gm INH Q4H PRN PRN Reason: Shortness of Breath Aspirin (Ecotrin) 325 mg PO BID [facility] Last Admin: 09/06/16 08:03 Dose: 325 mg Atenolol (Tenormin) 50 mg PO DAILY [facility] Last Admin: 09/06/16 10:09 Dose: Not Given Bisacodyl (Dulcolax) 5 mg PO DAILY PRN PRN Reason: Constipation Calcium Carbonate (Calcium Carbonate/Vitamin D 1500 Mg-200 Unit) 1 tab PO BID [facility] Last Admin: 09/06/16 08:03 Dose: 1 tab Cyclobenzaprine HCl (Flexeril) 10 mg PO TID PRN PRN Reason: Spasms Last Admin: 09/06/16 08:01 Dose: 10 mg Docusate Sodium (Colace) 100 mg PO BID [facility] Last Admin: 09/06/16 08:03 Dose: 100 mg Doxazosin Mesylate (Cardura) 1 mg PO BEDTIME [facility] Last Admin: 09/05/16 21:14 Dose: 1 mg Furosemide (Lasix) 80 mg PO BID [facility] Last Admin: 09/06/16 08:03 Dose: 80 mg Cefazolin Sodium/Dextrose 2 gm (/ Premix) 50 mls @ 100 mls/hr IV Q8H [facility] Stop: 09/06/16 11:59 Last Admin: 09/06/16 03:13 Dose: 100 mls/hr Promethazine HCl 12.5 mg/ (Sodium Chloride) 50.5 mls @ 100 mls/hr IV Q6H [facility] Last Admin: 09/06/16 04:55 Dose: 100 mls/hr Levothyroxine Sodium (Synthroid) 50 mcg PO DAILY [facility] Last Admin: 09/06/16 08:11 Dose: 50 mcg Losartan Potassium (Cozaar) 100 mg PO DAILY [facility] Last Admin: 09/06/16 10:08 Dose: Not Given Magnesium Hydroxide (Milk Of Magnesia) 30 ml PO BID PRN PRN Reason: Constipation Metformin HCl (Glucophage) 250 mg PO BID [facility] Last Admin: 09/06/16 08:02 Dose: 250 mg Miscellaneous Information (Remove Patch) 0 ea TRDERM ONETIME ONE Stop: 09/08/16 11:46 Morphine Sulfate (Morphine) 2 mg IVPUSH Q2H PRN PRN Reason: Breakthrough Pain Ondansetron HCl (Zofran) 4 mg IVPUSH Q6H PRN PRN Reason: Nausea/Vomiting Last Admin: 09/06/16 10:05 Dose: 4 mg Oxycodone/Acetaminophen (Percocet 325-5 Mg) 1 - 2 tab PO Q4H PRN PRN Reason: Pain Last Admin: 09/06/16 04:54 Dose: 2 tab Pantoprazole Sodium (Protonix) 40 mg PO DAILY [facility] Last Admin: 09/06/16 08:03 Dose: 40 mg Potassium Chloride (Klor-Con 10) 30 meq PO QPM [facility] Last Admin: 09/05/16 17:49 Dose: Not Given Potassium Chloride (Klor-Con M20) 40 meq PO QAM [facility] Last Admin: 09/06/16 08:01 Dose: 40 meq Senna (Senna) 8.6 mg PO BID PRN PRN Reason: Constipation Discontinued Medications Bupivacaine HCl (Marcaine 0.25%) Confirm Administered Dose 30 ml .ROUTE .STK- MED ONE Stop: 09/05/16 11:32 Last Admin: 09/05/16 13:28 Dose: 30 ml Cefazolin Sodium (Ancef) Confirm Administered Dose 2 gm .ROUTE .STK-MED ONE Stop: 09/05/16 11:37 Last Admin: 09/05/16 13:25 Dose: 2 gm Cefazolin Sodium (Ancef) Confirm Administered Dose 2 gm .ROUTE .STK-MED ONE Stop: 09/05/16 11:32 Morphine Sulfate 8 mg/Epinephrine HCl 0.3 mg/Cefuroxime Sodium 750 mg/Ketorolac Tromethamine 30 mg/Sodium Chloride 27.9 ml 0 mg .XX ONETIME ONE Stop: 09/05/16 12:01 Last Admin: 09/05/16 17:47 Dose: Not Given Diphenhydramine HCl (Benadryl) 25 mg IVPUSH Q6H PRN PRN Reason: itching Stop: 09/05/16 18:00 Diphtheria/Tetanus/Acell Pertussis (Boostrix) 0.5 ml IM .ONCE ONE Stop: 09/05/16 10:18 Last Admin: 09/05/16 17:48 Dose: Not Given Famotidine (Pepcid) 20 mg PO Q12H [facility] Fentanyl (Sublimaze) 50 mcg IVPUSH Q5M PRN PRN Reason: pain Stop: 09/05/16 18:00 Fentanyl (Sublimaze) Confirm Administered Dose 100 mcg .ROUTE .STK-MED ONE Stop: 09/05/16 11:38 Hydromorphone HCl (Dilaudid) 0.5 mg IVPUSH Q15M PRN PRN Reason: Pain (severe 7-10) Stop: 09/05/16 12:31 Lactated Ringer's (Ringers, Lactated) 1,000 mls @ 125 mls/hr IV ASDIRECTED [facility] Last Admin: 09/05/16 14:22 Dose: 125 mls/hr Lactated Ringer's (Ringers, Lactated) Confirm Administered Dose 1,000 mls @ as directed .ROUTE .STK-MED ONE Stop: 09/05/16 12:57 Iodine (Iodine 2% Mild Tincture) Confirm Administered Dose 30 ml .ROUTE .STK- MED ONE Stop: 09/05/16 11:32 Last Admin: 09/05/16 13:22 Dose: 18 ml Lidocaine/Sodium Bicarbonate (Buffered Lidocaine 1% In Ns 8.4%) 0.25 ml IV ONETIME PRN PRN Reason: Prior to IV Start Stop: 09/05/16 16:00 Last Admin: 09/05/16 10:29 Dose: 0.25 ml Metoclopramide HCl (Reglan) 10 mg IVPUSH ONETIME PRN PRN Reason: Nausea/Vomiting Stop: 09/05/16 18:00 Midazolam HCl (Versed 1 Mg/Ml) Confirm Administered Dose 2 mg .ROUTE .STK-MED ONE Stop: 09/05/16 11:38 Morphine Sulfate (Duramorph Pf) Confirm Administered Dose 10 mg .ROUTE .STK-MED ONE Stop: 09/05/16 11:40 Naloxone HCl (Narcan) 0.1 mg IVPUSH Q5M PRN PRN Reason: Oversedation Stop: 09/05/16 14:16 Ondansetron HCl (Zofran) 4 mg IVPUSH ONETIME PRN PRN Reason: Nausea/Vomiting Stop: 09/05/16 18:00 Last Admin: 09/05/16 15:13 Dose: 4 mg Propofol (Diprivan 20 Ml) Confirm Administered Dose 200 mg .ROUTE .STK-MED ONE Stop: 09/05/16 11:38 Propofol (Diprivan 20 Ml) Confirm Administered Dose 200 mg .ROUTE .STK-MED ONE Stop: 09/05/16 11:40 Propofol (Diprivan 20 Ml) Confirm Administered Dose 200 mg .ROUTE .STK-MED ONE Stop: 09/05/16 12:29 Propofol (Diprivan 20 Ml) Confirm Administered Dose 200 mg .ROUTE .STK-MED ONE Stop: 09/05/16 12:29 Propofol (Diprivan 20 Ml) Confirm Administered Dose 200 mg .ROUTE .STK-MED ONE Stop: 09/05/16 13:29 Scopolamine (Transderm-Scop) 1.5 mg TOP ONETIME [facility] Stop: 09/05/16 18:00 Last Admin: 09/05/16 11:55 Dose: 1.5 mg Sodium Chloride (Saline Flush) 10 ml FLUSH ASDIRECTED PRN PRN Reason: Keep Vein Open Stop: 09/05/16 18:00 Tranexamic Acid (Cyklokapron) Confirm Administered Dose 1,000 mg .ROUTE .STK- MED ONE Stop: 09/05/16 11:32 Last Admin: 09/05/16 12:56 Dose: 1,000 mg - Exam Wound/Incisions: dressing dry and intact General: alert, cooperative, no acute distress Lungs: Normal respiratory effort Extremities: normal pulses, no calf tenderness (NVS intact for LLE. Jaswant's negative. ) - Problem List Review Problem List Initiated/Reviewed/Updated: Yes - My Orders Last 24 Hours: Active Orders 24 hr Category Date Time Status Notify Provider [RC] ASDIRECTED Care 09/05/16 11:06 Active Pulse Oximetry [RC] ASDIRECTED Care 09/05/16 11:06 Active Vaccines to be Administered [RC] PER UNIT ROUTINE Care 09/05/16 10:17 Active Regular Diet [DIET] Diet 09/05/16 Dinner Active Albuterol [Proventil HFA] Med 09/05/16 13:31 Active 1 - 2 gm INH Q4H PRN Aspirin [Ecotrin] Med 09/06/16 09:00 Active 325 mg PO BID Atenolol [Tenormin] Med 09/06/16 09:00 Active 50 mg PO DAILY Calcium Carbonate/Vitamin D3 [Calcium Carbonate/Vitamin Med 09/05/16 21:00 Active D 1500 MG-200 Unit] 1 tab PO BID Cyclobenzaprine [Flexeril] Med 09/05/16 21:00 Active 10 mg PO TID PRN Docusate Sodium [Colace] Med 09/05/16 21:00 Active 100 mg PO BID Doxazosin [Cardura] Med 09/05/16 21:00 Active 1 mg PO BEDTIME Furosemide [Lasix] Med 09/05/16 21:00 Active 80 mg PO BID Levothyroxine [Synthroid] Med 09/06/16 09:00 Active 50 mcg PO DAILY Losartan [Cozaar] Med 09/06/16 09:00 Active 100 mg PO DAILY Magnesium Hydroxide [Milk of Magnesia] Med 09/05/16 21:00 Active 30 ml PO BID PRN Pantoprazole [ProTONIX] Med 09/06/16 09:00 Active 40 mg PO DAILY Potassium Chloride [Klor-Con 10] Med 09/05/16 18:00 Active 30 meq PO QPM Potassium Chloride [Klor-Con M20] Med 09/06/16 08:00 Active 40 meq PO QAM Promethazine [Phenergan] 12.5 mg Med 09/05/16 17:00 Active Sodium Chloride 0.9% [Normal Saline] 50 ml IV Q6H Remove Patch Med 09/08/16 11:45 Once 0 ea TRDERM ONETIME ONE Sennosides [Senna] Med 09/05/16 21:00 Active 8.6 mg PO BID PRN ceFAZolin [Ancef] 2 gm Med 09/05/16 19:30 Active Premix Bag 1 bag IV Q8H metFORMIN [Glucophage] Med 09/05/16 21:00 Active 250 mg PO BID Medication Orders Albuterol (Proventil Hfa) 1 - 2 gm INH Q4H PRN PRN Reason: Shortness of Breath Aspirin (Ecotrin) 325 mg PO BID [facility] Last Admin: 09/06/16 08:03 Dose: 325 mg Atenolol (Tenormin) 50 mg PO DAILY [facility] Last Admin: 09/06/16 10:09 Dose: Not Given Bisacodyl (Dulcolax) 5 mg PO DAILY PRN PRN Reason: Constipation Calcium Carbonate (Calcium Carbonate/Vitamin D 1500 Mg-200 Unit) 1 tab PO BID [facility] Last Admin: 09/06/16 08:03 Dose: 1 tab Admin: 09/05/16 21:13 Dose: 1 tab Cyclobenzaprine HCl (Flexeril) 10 mg PO TID PRN PRN Reason: Spasms Last Admin: 09/06/16 08:01 Dose: 10 mg Docusate Sodium (Colace) 100 mg PO BID [facility] Last Admin: 09/06/16 08:03 Dose: 100 mg Admin: 09/05/16 21:13 Dose: 100 mg Doxazosin Mesylate (Cardura) 1 mg PO BEDTIME [facility] Last Admin: 09/05/16 21:14 Dose: 1 mg Furosemide (Lasix) 80 mg PO BID [facility] Last Admin: 09/06/16 08:03 Dose: 80 mg Admin: 09/05/16 21:13 Dose: 80 mg Cefazolin Sodium/Dextrose 2 gm (/ Premix) 50 mls @ 100 mls/hr IV Q8H [facility] Stop: 09/06/16 11:59 Last Admin: 09/06/16 03:13 Dose: 100 mls/hr Infusion: 09/05/16 19:56 Dose: 100 mls/hr Admin: 09/05/16 19:26 Dose: 100 mls/hr Promethazine HCl 12.5 mg/ (Sodium Chloride) 50.5 mls @ 100 mls/hr IV Q6H [facility] Last Admin: 09/06/16 04:55 Dose: 100 mls/hr Infusion: 09/05/16 23:15 Dose: 100 mls/hr Admin: 09/05/16 22:44 Dose: 100 mls/hr Infusion: 09/05/16 18:16 Dose: 100 mls/hr Admin: 09/05/16 17:45 Dose: 100 mls/hr Levothyroxine Sodium (Synthroid) 50 mcg PO DAILY [facility] Last Admin: 09/06/16 08:11 Dose: 50 mcg Losartan Potassium (Cozaar) 100 mg PO DAILY [facility] Last Admin: 09/06/16 10:08 Dose: Magnesium Hydroxide (Milk Of Magnesia) 30 ml PO BID PRN PRN Reason: Constipation Metformin HCl (Glucophage) 250 mg PO BID [facility] Last Admin: 09/06/16 08:02 Dose: 250 mg Admin: 09/05/16 21:14 Dose: 250 mg Miscellaneous Information (Remove Patch) 0 ea TRDERM ONETIME ONE Stop: 09/08/16 11:46 Morphine Sulfate (Morphine) 2 mg IVPUSH Q2H PRN PRN Reason: Breakthrough Pain Ondansetron HCl (Zofran) 4 mg IVPUSH Q6H PRN PRN Reason: Nausea/Vomiting Last Admin: 09/06/16 10:05 Dose: 4 mg Oxycodone/Acetaminophen (Percocet 325-5 Mg) 1 - 2 tab PO Q4H PRN PRN Reason: Pain Last Admin: 09/06/16 04:54 Dose: 2 tab Admin: 09/05/16 22:52 Dose: 2 tab Pantoprazole Sodium (Protonix) 40 mg PO DAILY [facility] Last Admin: 09/06/16 08:03 Dose: 40 mg Potassium Chloride (Klor-Con 10) 30 meq PO QPM [facility] Last Admin: 09/05/16 17:49 Dose: Not Given Potassium Chloride (Klor-Con M20) 40 meq PO QAM [facility] Last Admin: 09/06/16 08:01 Dose: 40 meq Senna (Senna) 8.6 mg PO BID PRN PRN Reason: Constipation - Assessment Assessment (Free Text/Narrative):: POD#1 - left TKA - Plan Plan (Free Text/Narrative):: 1. Hgb 11.4 2. ASA 325mg BID, TEDs, frequent mobility. 3. The pt has been slow to progress with P.T. and O.T. due to nausea. The pt reports improved nausea this afternoon. 4. Continue with therapy and likely d/c tomorrow. The pt's case was discussed with Dr. Amezcua.
[2016-09-06] MEDS: Potassium Chloride 10 MEQ Tab.ER PO SCH (18:24)
[2016-09-06] MEDS: Doxazosin 2 MG Tab PO SCH (20:52)
[2016-09-07] MEDS: Acetaminophen/oxyCODONE 325-5 MG Tab PO PRN ×2 (01:34→06:58)
[2016-09-07] MEDS: Cyclobenzaprine 10 MG Tab PO PRN (01:34)
--- NOTE | 2016-09-07 07:25 | PCM.SURGPN ---
- General Info Date of Service: 09/07/16 POD#: 2 Functional Status: Reports: pain controlled, tolerating diet, ambulating, urinating, other (The pt reports her nausea has resolved.) - Review of Systems Musculoskeletal: Reports: other (The pt has progressed with therapies.) - Patient Data Vitals - most recent: Last Vital Signs Temp 97.9 F 09/07/16 05:27 Pulse 78 09/07/16 05:27 Resp 18 09/07/16 05:27 BP 125/59 L 09/07/16 05:27 Pulse Ox 95 09/07/16 05:27 Weight - most recent: 234 lb 4.8 oz I&O - last 24 hours: Intake & Output 09/06/16 09/07/16 09/07/16 22:59 06:59 14:59 Intake Total 375 Output Total 900 500 Balance -900 -125 Lab Results last 24 hrs: Laboratory Results - last 24 hr 09/06/16 09/06/16 Range/Units 06:40 06:40 WBC 8.63 (3.98-10.04) K/mm3 RBC 3.72 L (3.98-5.22) M/mm3 Hgb 11.4 (11.2-15.7) gm/L Hct 35.4 (34.1-44.9) % MCV 95.2 H (79.4-94.8) fl MCH 30.6 (25.6-32.2) pg MCHC 32.2 (32.2-35.5) g/dl RDW Std Deviation 43.0 (36.4-46.3) fL Plt Count 221 (182-369) K/mm3 MPV 9.9 (9.4-12.3) fl Neut % (Auto) 79.8 H (34.0-71.1) % Lymph % (Auto) 9.7 L (19.3-51.7) % Kay % (Auto) 8.5 (4.7-12.5) % Eos % (Auto) 1.7 (0.7-5.8) Baso % (Auto) 0.1 (0.1-1.2) % Neut # (Auto) 6.88 H (1.56-6.13) K/mm3 Lymph # (Auto) 0.84 L (1.18-3.74) K/mm3 Kay # (Auto) 0.73 H (0.24-0.36) K/mm3 Eos # (Auto) 0.15 (0.04-0.36) K/mm3 Baso # (Auto) 0.01 (0.01-0.08) K/mm3 Manual Slide Review Abnormal smear Sodium 142 (136-145) mEq/L Potassium 3.5 (3.5-5.1) mEq/L Chloride 106 (98-107) mEq/L Carbon Dioxide 31 (21-32) mEq/L Anion Gap 8.5 (5-15) BUN 17 (7-18) mg/dL Creatinine 1.2 H (0.55-1.02) mg/dL Est Cr Clr Drug Dosing 32.04 mL/min Estimated GFR (MDRD) 44 (>60) mL/min BUN/Creatinine Ratio 14.2 (14-18) Glucose 134 H (83-115) mg/dL Calcium 8.9 (8.5-10.1) mg/dL Total Bilirubin 0.5 (0.2-1.0) mg/dL AST 13 L (15-37) U/L ALT 23 (14-59) U/L Alkaline Phosphatase 66 (46-116) U/L Total Protein 5.9 L (6.4-8.2) g/dl Albumin 3.0 L (3.4-5.0) g/dl Globulin 2.9 gm/dL Albumin/Globulin Ratio 1.0 (1-2) Med Orders - Current: Current Medications Albuterol (Proventil Hfa) 1 - 2 gm INH Q4H PRN PRN Reason: Shortness of Breath Last Admin: 09/06/16 15:40 Dose: 2 puff Aspirin (Ecotrin) 325 mg PO BID [facility] Last Admin: 09/06/16 20:52 Dose: 325 mg Atenolol (Tenormin) 50 mg PO DAILY [facility] Last Admin: 09/06/16 10:09 Dose: Not Given Bisacodyl (Dulcolax) 5 mg PO DAILY PRN PRN Reason: Constipation Calcium Carbonate (Calcium Carbonate/Vitamin D 1500 Mg-200 Unit) 1 tab PO BID [facility] Last Admin: 09/06/16 20:52 Dose: 1 tab Cyclobenzaprine HCl (Flexeril) 10 mg PO TID PRN PRN Reason: Spasms Last Admin: 09/07/16 01:34 Dose: 10 mg Docusate Sodium (Colace) 100 mg PO BID [facility] Last Admin: 09/06/16 20:52 Dose: 100 mg Doxazosin Mesylate (Cardura) 1 mg PO BEDTIME [facility] Last Admin: 09/06/16 20:52 Dose: 1 mg Furosemide (Lasix) 80 mg PO BID [facility] Last Admin: 09/06/16 20:56 Dose: Not Given Levothyroxine Sodium (Synthroid) 50 mcg PO DAILY [facility] Last Admin: 09/06/16 08:11 Dose: 50 mcg Losartan Potassium (Cozaar) 100 mg PO DAILY [facility] Last Admin: 09/06/16 10:08 Dose: Not Given Magnesium Hydroxide (Milk Of Magnesia) 30 ml PO BID PRN PRN Reason: Constipation Metformin HCl (Glucophage) 250 mg PO BID [facility] Last Admin: 09/06/16 20:56 Dose: Not Given Miscellaneous Information (Remove Patch) 0 ea TRDERM ONETIME ONE Stop: 09/08/16 11:46 Morphine Sulfate (Morphine) 2 mg IVPUSH Q2H PRN PRN Reason: Breakthrough Pain Ondansetron HCl (Zofran) 4 mg IVPUSH Q6H PRN PRN Reason: Nausea/Vomiting Last Admin: 09/06/16 10:05 Dose: 4 mg Oxycodone/Acetaminophen (Percocet 325-5 Mg) 1 - 2 tab PO Q4H PRN PRN Reason: Pain Last Admin: 09/07/16 06:58 Dose: 2 tab Pantoprazole Sodium (Protonix) 40 mg PO DAILY [facility] Last Admin: 09/06/16 08:03 Dose: 40 mg Potassium Chloride (Klor-Con 10) 30 meq PO QPM [facility] Last Admin: 09/06/16 18:24 Dose: 30 meq Potassium Chloride (Klor-Con M20) 40 meq PO QAM [facility] Last Admin: 09/06/16 08:01 Dose: 40 meq Senna (Senna) 8.6 mg PO BID PRN PRN Reason: Constipation Discontinued Medications Bupivacaine HCl (Marcaine 0.25%) Confirm Administered Dose 30 ml .ROUTE .STK- MED ONE Stop: 09/05/16 11:32 Last Admin: 09/05/16 13:28 Dose: 30 ml Cefazolin Sodium (Ancef) Confirm Administered Dose 2 gm .ROUTE .STK-MED ONE Stop: 09/05/16 11:37 Last Admin: 09/05/16 13:25 Dose: 2 gm Cefazolin Sodium (Ancef) Confirm Administered Dose 2 gm .ROUTE .STK-MED ONE Stop: 09/05/16 11:32 Morphine Sulfate 8 mg/Epinephrine HCl 0.3 mg/Cefuroxime Sodium 750 mg/Ketorolac Tromethamine 30 mg/Sodium Chloride 27.9 ml 0 mg .XX ONETIME ONE Stop: 09/05/16 12:01 Last Admin: 09/05/16 17:47 Dose: Not Given Diphenhydramine HCl (Benadryl) 25 mg IVPUSH Q6H PRN PRN Reason: itching Stop: 09/05/16 18:00 Diphtheria/Tetanus/Acell Pertussis (Boostrix) 0.5 ml IM .ONCE ONE Stop: 09/05/16 10:18 Last Admin: 09/05/16 17:48 Dose: Not Given Famotidine (Pepcid) 20 mg PO Q12H [facility] Fentanyl (Sublimaze) 50 mcg IVPUSH Q5M PRN PRN Reason: pain Stop: 09/05/16 18:00 Fentanyl (Sublimaze) Confirm Administered Dose 100 mcg .ROUTE .STK-MED ONE Stop: 09/05/16 11:38 Hydromorphone HCl (Dilaudid) 0.5 mg IVPUSH Q15M PRN PRN Reason: Pain (severe 7-10) Stop: 09/05/16 12:31 Lactated Ringer's (Ringers, Lactated) 1,000 mls @ 125 mls/hr IV ASDIRECTED [facility] Last Admin: 09/05/16 14:22 Dose: 125 mls/hr Cefazolin Sodium/Dextrose 2 gm (/ Premix) 50 mls @ 100 mls/hr IV Q8H [facility] Stop: 09/06/16 11:59 Last Admin: 09/06/16 11:20 Dose: 100 mls/hr Lactated Ringer's (Ringers, Lactated) Confirm Administered Dose 1,000 mls @ as directed .ROUTE .STK-MED ONE Stop: 09/05/16 12:57 Promethazine HCl 12.5 mg/ (Sodium Chloride) 50.5 mls @ 100 mls/hr IV Q6H [facility] Last Admin: 09/06/16 04:55 Dose: 100 mls/hr Iodine (Iodine 2% Mild Tincture) Confirm Administered Dose 30 ml .ROUTE .STK- MED ONE Stop: 09/05/16 11:32 Last Admin: 09/05/16 13:22 Dose: 18 ml Lidocaine/Sodium Bicarbonate (Buffered Lidocaine 1% In Ns 8.4%) 0.25 ml IV ONETIME PRN PRN Reason: Prior to IV Start Stop: 09/05/16 16:00 Last Admin: 09/05/16 10:29 Dose: 0.25 ml Metoclopramide HCl (Reglan) 10 mg IVPUSH ONETIME PRN PRN Reason: Nausea/Vomiting Stop: 09/05/16 18:00 Midazolam HCl (Versed 1 Mg/Ml) Confirm Administered Dose 2 mg .ROUTE .STK-MED ONE Stop: 09/05/16 11:38 Morphine Sulfate (Duramorph Pf) Confirm Administered Dose 10 mg .ROUTE .STK-MED ONE Stop: 09/05/16 11:40 Naloxone HCl (Narcan) 0.1 mg IVPUSH Q5M PRN PRN Reason: Oversedation Stop: 09/05/16 14:16 Ondansetron HCl (Zofran) 4 mg IVPUSH ONETIME PRN PRN Reason: Nausea/Vomiting Stop: 09/05/16 18:00 Last Admin: 09/05/16 15:13 Dose: 4 mg Propofol (Diprivan 20 Ml) Confirm Administered Dose 200 mg .ROUTE .STK-MED ONE Stop: 09/05/16 11:38 Propofol (Diprivan 20 Ml) Confirm Administered Dose 200 mg .ROUTE .STK-MED ONE Stop: 09/05/16 11:40 Propofol (Diprivan 20 Ml) Confirm Administered Dose 200 mg .ROUTE .STK-MED ONE Stop: 09/05/16 12:29 Propofol (Diprivan 20 Ml) Confirm Administered Dose 200 mg .ROUTE .STK-MED ONE Stop: 09/05/16 12:29 Propofol (Diprivan 20 Ml) Confirm Administered Dose 200 mg .ROUTE .STK-MED ONE Stop: 09/05/16 13:29 Scopolamine (Transderm-Scop) 1.5 mg TOP ONETIME [facility] Stop: 09/05/16 18:00 Last Admin: 09/05/16 11:55 Dose: 1.5 mg Sodium Chloride (Saline Flush) 10 ml FLUSH ASDIRECTED PRN PRN Reason: Keep Vein Open Stop: 09/05/16 18:00 Tranexamic Acid (Cyklokapron) Confirm Administered Dose 1,000 mg .ROUTE .STK- MED ONE Stop: 09/05/16 11:32 Last Admin: 09/05/16 12:56 Dose: 1,000 mg - Exam Wound/Incisions: dressing dry and intact General: alert, cooperative, no acute distress Lungs: Normal respiratory effort Extremities: normal pulses, no calf tenderness (NVS intact for LLE. Jaswant's negative. Assistance with LLE SLR required.) - Problem List Review Problem List Initiated/Reviewed/Updated: Yes - My Orders Last 24 Hours: Active Orders 24 hr Category Date Time Status Ready for Discharge [RC] PER UNIT ROUTINE Care 09/07/16 06:34 Active Aspirin [Ecotrin] Med 09/06/16 09:00 Active 325 mg PO BID Atenolol [Tenormin] Med 09/06/16 09:00 Active 50 mg PO DAILY Levothyroxine [Synthroid] Med 09/06/16 09:00 Active 50 mcg PO DAILY Losartan [Cozaar] Med 09/06/16 09:00 Active 100 mg PO DAILY Pantoprazole [ProTONIX] Med 09/06/16 09:00 Active 40 mg PO DAILY Potassium Chloride [Klor-Con M20] Med 09/06/16 08:00 Active 40 meq PO QAM Remove Patch Med 09/08/16 11:45 Once 0 ea TRDERM ONETIME ONE Medication Orders Albuterol (Proventil Hfa) 1 - 2 gm INH Q4H PRN PRN Reason: Shortness of Breath Last Admin: 09/06/16 15:40 Dose: 2 puff Aspirin (Ecotrin) 325 mg PO BID [facility] Last Admin: 09/06/16 20:52 Dose: 325 mg Admin: 09/06/16 08:03 Dose: 325 mg Atenolol (Tenormin) 50 mg PO DAILY [facility] Last Admin: 09/06/16 10:09 Dose: Not Given Bisacodyl (Dulcolax) 5 mg PO DAILY PRN PRN Reason: Constipation Calcium Carbonate (Calcium Carbonate/Vitamin D 1500 Mg-200 Unit) 1 tab PO BID [facility] Last Admin: 09/06/16 20:52 Dose: 1 tab Admin: 09/06/16 08:03 Dose: 1 tab Admin: 09/05/16 21:13 Dose: 1 tab Cyclobenzaprine HCl (Flexeril) 10 mg PO TID PRN PRN Reason: Spasms Last Admin: 09/07/16 01:34 Dose: 10 mg Admin: 09/06/16 15:56 Dose: 10 mg Admin: 09/06/16 08:01 Dose: 10 mg Docusate Sodium (Colace) 100 mg PO BID [facility] Last Admin: 09/06/16 20:52 Dose: 100 mg Admin: 09/06/16 08:03 Dose: 100 mg Admin: 09/05/16 21:13 Dose: 100 mg Doxazosin Mesylate (Cardura) 1 mg PO BEDTIME [facility] Last Admin: 09/06/16 20:52 Dose: 1 mg Admin: 09/05/16 21:14 Dose: 1 mg Furosemide (Lasix) 80 mg PO BID [facility] Last Admin: 09/06/16 20:56 Dose: Not Given Admin: 09/06/16 08:03 Dose: 80 mg Admin: 09/05/16 21:13 Dose: 80 mg Levothyroxine Sodium (Synthroid) 50 mcg PO DAILY [facility] Last Admin: 09/06/16 08:11 Dose: 50 mcg Losartan Potassium (Cozaar) 100 mg PO DAILY [facility] Last Admin: 09/06/16 10:08 Dose: Magnesium Hydroxide (Milk Of Magnesia) 30 ml PO BID PRN PRN Reason: Constipation Metformin HCl (Glucophage) 250 mg PO BID [facility] Last Admin: 09/06/16 20:56 Dose: Not Given Admin: 09/06/16 08:02 Dose: 250 mg Admin: 09/05/16 21:14 Dose: 250 mg Miscellaneous Information (Remove Patch) 0 ea TRDERM ONETIME ONE Stop: 09/08/16 11:46 Morphine Sulfate (Morphine) 2 mg IVPUSH Q2H PRN PRN Reason: Breakthrough Pain Ondansetron HCl (Zofran) 4 mg IVPUSH Q6H PRN PRN Reason: Nausea/Vomiting Last Admin: 09/06/16 10:05 Dose: 4 mg Oxycodone/Acetaminophen (Percocet 325-5 Mg) 1 - 2 tab PO Q4H PRN PRN Reason: Pain Last Admin: 09/07/16 06:58 Dose: 2 tab Admin: 09/07/16 01:34 Dose: 2 tab Admin: 09/06/16 17:50 Dose: 2 tab Admin: 09/06/16 11:30 Dose: 2 tab Admin: 09/06/16 04:54 Dose: 2 tab Admin: 09/05/16 22:52 Dose: 2 tab Pantoprazole Sodium (Protonix) 40 mg PO DAILY [facility] Last Admin: 09/06/16 08:03 Dose: 40 mg Potassium Chloride (Klor-Con 10) 30 meq PO QPM [facility] Last Admin: 09/06/16 18:24 Dose: 30 meq Admin: 09/05/16 17:49 Dose: Not Given Potassium Chloride (Klor-Con M20) 40 meq PO QAM [facility] Last Admin: 09/06/16 08:01 Dose: 40 meq Senna (Senna) 8.6 mg PO BID PRN PRN Reason: Constipation - Assessment Assessment (Free Text/Narrative):: POD#2 - left TKA - Plan Plan (Free Text/Narrative):: 1. Discharge to home today. The pt will have assistance of her . 2. ASA 325mg BID. Frequent mobility and TEDs. 3. Percocet, Flexeril, Zofran ODT, ASA prescriptions provided. The pt's case was discussed with Dr. Amezcua.
--- NOTE | 2016-09-07 07:47 | PCM.DCSUM1 ---
Discharge Summary - Hospital Course Brief History: Ruby is a 76 yo female who underwent left TKA with Dr. Amezcua on 09-05-2016. The procedure was completed under spinal anesthesia with MAC. The pt tolerated the procedure well and was admitted to the [facility] under Medical-Sugical status. The pt received 3 doses of IV Ancef post-operatively. The pt's surgical wound was dressed with a Mepilex dressing and it remained clean and dry. Medical management was provided by the Hospitalist service. The pt's Hospital course was remarkable for post-op nausea which resolved. The pt participated in P.T. and O.T. and progressed well. On POD#1, 325mg ASA BID was initiated for VTE prophylaxis. On POD#2, the pt was deemed appropriate for discharge to home with her . - Discharge Data Discharge Date: 09/07/16 Discharge Disposition: Home, Self-Care 01 Condition: Good - Patient Summary/Data Consults: Consultations 09/05/16 07:04 Consult to Physician [CONS] Routine OT Evaluation and Treatment [CONS] Routine 09/05/16 07:07 PT Evaluation and Treatment [CONS] Routine - Patient Instructions Diet: Usual Diet as Tolerated Activity: Apply Ice, As Tolerated, Elevate Extremity, Full Weight Bearing Driving: Do Not Drive Showering/Bathing: May Shower Wound/Incision Care: Keep Operative Site/Wound Site Clean and Dry, Do NOT Change Dressing Notify Provider of: Fever, Increased Pain, Swelling and Redness, Drainage, Nausea and/or Vomiting Other/Special Instructions: Please get up and moving around every hour while awake. This helps to prevent blood clots. Use your walker and have help with mobility as needed. Please take 325mg aspirin TWICE daily - this also helps to prevent blood clots. The medication is being used for blood clot prevention and not for pain control, so please use the medication twice daily as directed. Please wear the JACOB hose during the day and you may remove them at night. Please schedule for P.T. Complete the P.T. exercises and stretches that were instructed in the Hospital. Please use the pain medication as needed. The medication may cause drowsiness and/or constipation. You could use a stool softener like docusate sodium or Colace 100mg twice daily and/or a laxative like polyethylene glycol or Miralax daily for constipation. Contact your primary care provider for further instructions if you are constipated. Please schedule an appointment with your primary care provider for 'routine post-op care'. Use the incentive spirometer often. Please place ice to the knee often. Please elevate the limb to decrease swelling. Keep the Mepilex dressing in place until follow-up. Please call [phone] with questions or concerns. - Discharge Plan Prescriptions/Med Rec: Acetaminophen/oxyCODONE [Percocet 325-5 MG] 1 - 2 tab PO Q4H PRN #60 tablet PRN Reason: Pain Aspirin [Ecotrin] 325 mg PO BID #84 tab.ec Cyclobenzaprine [Flexeril] 10 mg PO TID PRN #40 tablet PRN Reason: Spasms Ondansetron [Zofran ODT] 4 mg PO Q6H PRN #20 tab.dis PRN Reason: nausea Home Medications: Home Meds Atenolol 50 mg PO DAILY 11/26/14 [History] Furosemide [Lasix] 80 mg PO BID 11/26/14 [History] Levothyroxine [Synthroid] 50 mcg PO DAILY 11/26/14 [History] Omeprazole [Prilosec] 20 mg PO DAILY 11/26/14 [History] Potassium Chloride 30 mg PO QPM 11/26/14 [History] Potassium Chloride 40 mg PO QAM 11/26/14 [History] Calcium Carb & Citrate/Vit D3 [Calcium + D3 ER Tablet] 1 tab PO BID 01/16/16 [ History] metFORMIN [Glucophage XR] 250 mg PO BID 01/16/16 [History] Albuterol [IJD: Ventolin HFA] 1 - 2 puff INH Q4H PRN 09/02/16 [History] Doxazosin Mesylate 1 mg PO BEDTIME 09/02/16 [History] Gluc HCl/Csa/Kay Hy/Hyalur Ac [Glucosamine Chondroitin] 1 cap PO BID 09/02/16 [ History] Losartan [Cozaar] 100 mg PO DAILY 09/02/16 [History] Acetaminophen/oxyCODONE [Percocet 325-5 MG] 1 - 2 tab PO Q4H PRN #60 tablet 02/14 [Rx] Aspirin [Ecotrin] 325 mg PO BID #84 tab.ec 09/07/16 [Rx] Bisacodyl [Dulcolax] 5 mg PO DAILY PRN #0 tablet 09/07/16 [Rx] Cyclobenzaprine [Flexeril] 10 mg PO TID PRN #40 tablet 09/07/16 [Rx] Docusate Sodium [Colace] 100 mg PO BID cap 09/07/16 [Rx] Magnesium Hydroxide [Milk of Magnesia] 30 ml PO BID PRN #0 cup 09/07/16 [Rx] Ondansetron [Zofran ODT] 4 mg PO Q6H PRN #20 tab.dis 09/07/16 [Rx] Sennosides [Senna] 8.6 mg PO BID PRN #0 tablet 09/07/16 [Rx] Patient Handouts: Total Knee Replacement, Care After, [id number], Total Knee Replacement, Biid-nx-Wynh, Aspirin, ASA oral tablets, Knee Rehabilitation Guidelines Following Surgery Referrals: Ina Rivera PA-C [Physician Automated Cutting Machine Operator] - Wes Solis MD [Primary Care Provider] - - Patient Data Vitals - Most Recent: Last Vital Signs Temp 97.9 F 09/07/16 05:27 Pulse 78 09/07/16 05:27 Resp 18 09/07/16 05:27 BP 125/59 L 09/07/16 05:27 Pulse Ox 95 09/07/16 05:27 Weight - Most Recent: 234 lb 4.8 oz I&O - Last 24 hours: Intake & Output 09/06/16 09/07/16 09/07/16 22:59 06:59 14:59 Intake Total 375 Output Total 900 500 Balance -900 -125 Lab Results - Last 24 hrs: Laboratory Results - last 24 hr 09/06/16 09/06/16 Range/Units 06:40 06:40 WBC 8.63 (3.98-10.04) K/mm3 RBC 3.72 L (3.98-5.22) M/mm3 Hgb 11.4 (11.2-15.7) gm/L Hct 35.4 (34.1-44.9) % MCV 95.2 H (79.4-94.8) fl MCH 30.6 (25.6-32.2) pg MCHC 32.2 (32.2-35.5) g/dl RDW Std Deviation 43.0 (36.4-46.3) fL Plt Count 221 (182-369) K/mm3 MPV 9.9 (9.4-12.3) fl Neut % (Auto) 79.8 H (34.0-71.1) % Lymph % (Auto) 9.7 L (19.3-51.7) % Elk % (Auto) 8.5 (4.7-12.5) % Eos % (Auto) 1.7 (0.7-5.8) Baso % (Auto) 0.1 (0.1-1.2) % Neut # (Auto) 6.88 H (1.56-6.13) K/mm3 Lymph # (Auto) 0.84 L (1.18-3.74) K/mm3 Elk # (Auto) 0.73 H (0.24-0.36) K/mm3 Eos # (Auto) 0.15 (0.04-0.36) K/mm3 Baso # (Auto) 0.01 (0.01-0.08) K/mm3 Manual Slide Review Abnormal smear Sodium 142 (136-145) mEq/L Potassium 3.5 (3.5-5.1) mEq/L Chloride 106 (98-107) mEq/L Carbon Dioxide 31 (21-32) mEq/L Anion Gap 8.5 (5-15) BUN 17 (7-18) mg/dL Creatinine 1.2 H (0.55-1.02) mg/dL Est Cr Clr Drug Dosing 32.04 mL/min Estimated GFR (MDRD) 44 (>60) mL/min BUN/Creatinine Ratio 14.2 (14-18) Glucose 134 H (83-115) mg/dL Calcium 8.9 (8.5-10.1) mg/dL Total Bilirubin 0.5 (0.2-1.0) mg/dL AST 13 L (15-37) U/L ALT 23 (14-59) U/L Alkaline Phosphatase 66 (46-116) U/L Total Protein 5.9 L (6.4-8.2) g/dl Albumin 3.0 L (3.4-5.0) g/dl Globulin 2.9 gm/dL Albumin/Globulin Ratio 1.0 (1-2) Med Orders - Current: Current Medications Albuterol (Proventil Hfa) 1 - 2 gm INH Q4H PRN PRN Reason: Shortness of Breath Last Admin: 09/06/16 15:40 Dose: 2 puff Aspirin (Ecotrin) 325 mg PO BID [facility] Last Admin: 09/06/16 20:52 Dose: 325 mg Atenolol (Tenormin) 50 mg PO DAILY [facility] Last Admin: 09/06/16 10:09 Dose: Not Given Bisacodyl (Dulcolax) 5 mg PO DAILY PRN PRN Reason: Constipation Calcium Carbonate (Calcium Carbonate/Vitamin D 1500 Mg-200 Unit) 1 tab PO BID [facility] Last Admin: 09/06/16 20:52 Dose: 1 tab Cyclobenzaprine HCl (Flexeril) 10 mg PO TID PRN PRN Reason: Spasms Last Admin: 09/07/16 01:34 Dose: 10 mg Docusate Sodium (Colace) 100 mg PO BID [facility] Last Admin: 09/06/16 20:52 Dose: 100 mg Doxazosin Mesylate (Cardura) 1 mg PO BEDTIME [facility] Last Admin: 09/06/16 20:52 Dose: 1 mg Furosemide (Lasix) 80 mg PO BID [facility] Last Admin: 09/06/16 20:56 Dose: Not Given Levothyroxine Sodium (Synthroid) 50 mcg PO DAILY [facility] Last Admin: 09/06/16 08:11 Dose: 50 mcg Losartan Potassium (Cozaar) 100 mg PO DAILY [facility] Last Admin: 09/06/16 10:08 Dose: Not Given Magnesium Hydroxide (Milk Of Magnesia) 30 ml PO BID PRN PRN Reason: Constipation Metformin HCl (Glucophage) 250 mg PO BID [facility] Last Admin: 09/06/16 20:56 Dose: Not Given Miscellaneous Information (Remove Patch) 0 ea TRDERM ONETIME ONE Stop: 09/08/16 11:46 Morphine Sulfate (Morphine) 2 mg IVPUSH Q2H PRN PRN Reason: Breakthrough Pain Ondansetron HCl (Zofran) 4 mg IVPUSH Q6H PRN PRN Reason: Nausea/Vomiting Last Admin: 09/06/16 10:05 Dose: 4 mg Oxycodone/Acetaminophen (Percocet 325-5 Mg) 1 - 2 tab PO Q4H PRN PRN Reason: Pain Last Admin: 09/07/16 06:58 Dose: 2 tab Pantoprazole Sodium (Protonix) 40 mg PO DAILY [facility] Last Admin: 09/06/16 08:03 Dose: 40 mg Potassium Chloride (Klor-Con 10) 30 meq PO QPM [facility] Last Admin: 09/06/16 18:24 Dose: 30 meq Potassium Chloride (Klor-Con M20) 40 meq PO QAM [facility] Last Admin: 09/06/16 08:01 Dose: 40 meq Senna (Senna) 8.6 mg PO BID PRN PRN Reason: Constipation Discontinued Medications Bupivacaine HCl (Marcaine 0.25%) Confirm Administered Dose 30 ml .ROUTE .STK- MED ONE Stop: 09/05/16 11:32 Last Admin: 09/05/16 13:28 Dose: 30 ml Cefazolin Sodium (Ancef) Confirm Administered Dose 2 gm .ROUTE .STK-MED ONE Stop: 09/05/16 11:37 Last Admin: 09/05/16 13:25 Dose: 2 gm Cefazolin Sodium (Ancef) Confirm Administered Dose 2 gm .ROUTE .STK-MED ONE Stop: 09/05/16 11:32 Morphine Sulfate 8 mg/Epinephrine HCl 0.3 mg/Cefuroxime Sodium 750 mg/Ketorolac Tromethamine 30 mg/Sodium Chloride 27.9 ml 0 mg .XX ONETIME ONE Stop: 09/05/16 12:01 Last Admin: 09/05/16 17:47 Dose: Not Given Diphenhydramine HCl (Benadryl) 25 mg IVPUSH Q6H PRN PRN Reason: itching Stop: 09/05/16 18:00 Diphtheria/Tetanus/Acell Pertussis (Boostrix) 0.5 ml IM .ONCE ONE Stop: 09/05/16 10:18 Last Admin: 09/05/16 17:48 Dose: Not Given Famotidine (Pepcid) 20 mg PO Q12H [facility] Fentanyl (Sublimaze) 50 mcg IVPUSH Q5M PRN PRN Reason: pain Stop: 09/05/16 18:00 Fentanyl (Sublimaze) Confirm Administered Dose 100 mcg .ROUTE .STK-MED ONE Stop: 09/05/16 11:38 Hydromorphone HCl (Dilaudid) 0.5 mg IVPUSH Q15M PRN PRN Reason: Pain (severe 7-10) Stop: 09/05/16 12:31 Lactated Ringer's (Ringers, Lactated) 1,000 mls @ 125 mls/hr IV ASDIRECTED [facility] Last Admin: 09/05/16 14:22 Dose: 125 mls/hr Cefazolin Sodium/Dextrose 2 gm (/ Premix) 50 mls @ 100 mls/hr IV Q8H [facility] Stop: 09/06/16 11:59 Last Admin: 09/06/16 11:20 Dose: 100 mls/hr Lactated Ringer's (Ringers, Lactated) Confirm Administered Dose 1,000 mls @ as directed .ROUTE .STK-MED ONE Stop: 09/05/16 12:57 Promethazine HCl 12.5 mg/ (Sodium Chloride) 50.5 mls @ 100 mls/hr IV Q6H [facility] Last Admin: 09/06/16 04:55 Dose: 100 mls/hr Iodine (Iodine 2% Mild Tincture) Confirm Administered Dose 30 ml .ROUTE .STK- MED ONE Stop: 09/05/16 11:32 Last Admin: 09/05/16 13:22 Dose: 18 ml Lidocaine/Sodium Bicarbonate (Buffered Lidocaine 1% In Ns 8.4%) 0.25 ml IV ONETIME PRN PRN Reason: Prior to IV Start Stop: 09/05/16 16:00 Last Admin: 09/05/16 10:29 Dose: 0.25 ml Metoclopramide HCl (Reglan) 10 mg IVPUSH ONETIME PRN PRN Reason: Nausea/Vomiting Stop: 09/05/16 18:00 Midazolam HCl (Versed 1 Mg/Ml) Confirm Administered Dose 2 mg .ROUTE .STK-MED ONE Stop: 09/05/16 11:38 Morphine Sulfate (Duramorph Pf) Confirm Administered Dose 10 mg .ROUTE .STK-MED ONE Stop: 09/05/16 11:40 Naloxone HCl (Narcan) 0.1 mg IVPUSH Q5M PRN PRN Reason: Oversedation Stop: 09/05/16 14:16 Ondansetron HCl (Zofran) 4 mg IVPUSH ONETIME PRN PRN Reason: Nausea/Vomiting Stop: 09/05/16 18:00 Last Admin: 09/05/16 15:13 Dose: 4 mg Propofol (Diprivan 20 Ml) Confirm Administered Dose 200 mg .ROUTE .STK-MED ONE Stop: 09/05/16 11:38 Propofol (Diprivan 20 Ml) Confirm Administered Dose 200 mg .ROUTE .STK-MED ONE Stop: 09/05/16 11:40 Propofol (Diprivan 20 Ml) Confirm Administered Dose 200 mg .ROUTE .STK-MED ONE Stop: 09/05/16 12:29 Propofol (Diprivan 20 Ml) Confirm Administered Dose 200 mg .ROUTE .STK-MED ONE Stop: 09/05/16 12:29 Propofol (Diprivan 20 Ml) Confirm Administered Dose 200 mg .ROUTE .STK-MED ONE Stop: 09/05/16 13:29 Scopolamine (Transderm-Scop) 1.5 mg TOP ONETIME MARIXA Stop: 09/05/16 18:00 Last Admin: 09/05/16 11:55 Dose: 1.5 mg Sodium Chloride (Saline Flush) 10 ml FLUSH ASDIRECTED PRN PRN Reason: Keep Vein Open Stop: 09/05/16 18:00 Tranexamic Acid (Cyklokapron) Confirm Administered Dose 1,000 mg .ROUTE .STK- MED ONE Stop: 09/05/16 11:32 Last Admin: 09/05/16 12:56 Dose: 1,000 mg *Q Meaningful Use (DIS) - VTE *Q VTE Criteria *Q: - Stroke *Q Stroke Criteria *Q: - AMI *Q AMI Criteria *Q:
[2016-09-07] MEDS: Furosemide 80 MG Tab PO SCH (08:12)
[2016-09-07] MEDS: Losartan 100 MG Tab PO SCH (08:12)
[2016-09-07] MEDS: Atenolol 50 MG Tab PO SCH (08:12)
[2016-09-07] MEDS: Calcium Carbonate/Vitamin D3 1500 MG-200 Units Tab PO SCH (08:13)
[2016-09-07] MEDS: Docusate Sodium 100 MG Cap PO SCH (08:13)
[2016-09-07] MEDS: Levothyroxine 50 MCG Tab PO SCH (08:13)
[2016-09-07] MEDS: Pantoprazole 40 MG Tab.CR PO SCH (08:13)
[2016-09-07] MEDS: Aspirin 325 MG Tab.EC PO SCH (08:13)
[2016-09-07] MEDS: Potassium Chloride 20 MEQ Tab.ER PO SCH (08:14)
[2016-09-07] MEDS: metFORMIN 500 MG Tab PO SCH (08:14)
[2016-09-07 08:18] VITALS: BP 127/49
[2016-09-07] MEDS ORDERED: Diphtheria,Pertussis(Acell),Tetanus Vaccine 0.5 ML SDV inactive IM ONE (10:00)
--- NOTE | 2016-09-07 21:02 | PCM.OPNOTE ---
- General Post-Op/Procedure Note Date of Surgery/Procedure: 09/05/16 Operative Procedure(s): left total knee arthroplasty Pre Op Diagnosis: left knee osteoarthrosis Post-Op Diagnosis: Same Anesthesia Technique: Local, MAC, Spinal Primary Surgeon: Lang Amezcua Anesthesia Provider: Ashley Hernandez Client Success Specialist: Ina Rivera Client Success Specialist: Peace Guadalupe EBL in mLs: 150 Complications: None Condition: Good Free Text/Narrative:: Intake & Output 09/07/16 09/07/16 09/07/16 06:59 14:59 22:59 Intake Total 375 0 Output Total 500 Balance -125 0
--- NOTE | 2016-09-07 22:04 | OR ---
DATE OF OPERATION: 09/05/2016 SURGEON: Lang Amezcua MD OPERATION PERFORMED: Left total knee arthroplasty. PREOPERATIVE DIAGNOSIS: Left knee osteoarthrosis. POSTOPERATIVE DIAGNOSIS: Left knee osteoarthrosis. ANESTHESIA: Local MAC with spinal. ANESTHESIA PROVIDER: Ashley Hernandez CRNA. MECHANICAL FITTER: 1. Ina Rivera PA-C. 2. Peace Guadalupe LPN. ESTIMATED BLOOD LOSS: 150 mL. COMPLICATIONS: None. CONDITION: Stable. IMPLANTS: 1. Damien size 3 PS femur. 2. Damien size 3 [place] tibial baseplate. 3. Linwood size 3 PS X3 polyethylene 11 mm. 4. Damien asymmetric 29 x 9 mm patella. DESCRIPTION OF PROCEDURE: The patient was identified in the preop holding area. Proper site was marked and identified by the surgeon. The patient was taken back to the operating theater. After adequate anesthesia, the patient's left lower extremity had a nonsterile tourniquet applied and it was then sterilely prepped and draped in the usual sterile fashion. OR timeout was performed. The patient received 2 g IV Ancef. At this time, left lower extremity was exsanguinated. Tourniquet was insufflated to 300 mmHg. Standard medial parapatellar incision was made. Medial parapatellar arthrotomy was created. Deep fibers of the MCL were raised and anterior fat pad was resected. At this time, attention was turned to the patella. Patella measured a 22, it was resected to a 13 for a 29 x 9 mm patella. Drill holes were then drilled and found to be in adequate position. The drill was then drilled in the distal femur and the intramedullary distal femoral cutting guide was then placed. 8 mm was resected off the distal femur and was found to be an adequate resection. Sizing guide was placed. It was found to be a size 3 femur that was shown on the implant record at the beginning of this dictation. The drill holes were drilled for the epicondylar axis using Whitesides line and epicondyles as reference. At this time, the 4-in-1 cutting block was placed. An anterior posterior and anterior and posterior chamfer cuts were then completed. The correct size box cut was then placed and the box cut was completed and found to be an adequate resection. Attention was turned to the tibia. The posterior medial lateral retractors were placed. The extramedullary tibial guide was placed. It was placed in the old footprint of the ACL. It was aligned with the center of the ankle and 0 degrees of slope, 9 mm was then resected off the unaffected lateral side. There was found to be an acceptable reduction. At this time, posterior osteophytes were removed along with medial and lateral meniscus. A trial implant was placed with a correct sized tibia that was mentioned at the beginning of the dictation. A PS X3 polyethylene was then placed. The patient's knee was brought through range of motion. The patella was tracking centrally and was stable to varus and valgus stress. Alignment was found to be roughly at 0 degrees. At this time, cement was mixed on the back table. The tibia was stamped and drilled in proper rotation. All cut surfaces were irrigated with pulse lavage irrigation with Ancef and then completely dried. Once this was completed, then the cement was ready. The universal tibial base plate was cemented in place. An 11 mm trial spacer was placed. Next, the 3 PS femur cemented into place and the PS X3 polyethylene was placed. The patient's knee was brought into full extension. Excess cement was removed. The patella was then cemented in place at this time. Tourniquet was deflated. One liter dilute Betadine solution was irrigated through the knee along with 3 L of pulse lavage irrigation with Ancef. Periarticular injection was then completed. The patient's knee was brought through a range of motion. Once the cement had time to set up and it was found to be stable to varus valgus stress, the patella was tracking centrally with full range of motion. At this time, a #2 barbed suture was used for closure of the medial parapatellar arthrotomy. Topical tranexamic acid was placed. 2-0 Vicryl was used subcutaneously, a running 3-0 Monocryl was used subcuticularly. The patient tolerated the procedure well and was sent to the PACU in stable condition. JESS /[id number]
== END 2016-09-07 10:35 | disposition home or self-care (01) | DRG 470 ==
LOC: JD.OB 09:58 → JD.MS 09-06 19:32
PROVIDERS: ADMIT Orthopaedic Surgery; ATTEND Orthopaedic Surgery
PROC: 0SRD0J9 Replacement of Left Knee Joint with Synthetic Substitute, Cemented, Open Approach (ICD-10-PCS; principal; 2016-09-05)
DX: M17.12 Unilateral primary osteoarthritis, left knee (principal); R11.0 Nausea; I12.9 Hypertensive chronic kidney disease with stage 1 through stage 4 chronic kidney disease, or unspecified chronic kidney disease; E11.22 Type 2 diabetes mellitus with diabetic chronic kidney disease; N18.2 Chronic kidney disease, stage 2 (mild); K21.9 Gastro-esophageal reflux disease without esophagitis; E66.01 Morbid (severe) obesity due to excess calories; E78.2 Mixed hyperlipidemia; Z79.84 Long term (current) use of oral hypoglycemic drugs; Z79.899 Other long term (current) drug therapy; Z79.82 Long term (current) use of aspirin; Z88.1 Allergy status to other antibiotic agents; Z88.8 Allergy status to other drugs, medicaments and biological substances; E03.9 Hypothyroidism, unspecified; Z23 Encounter for immunization
CPT/HCPCS: 01402; 36415; 73560-26-LT; 73560-LT; 80048; 80053; 82962; 85025; 85610; 85730; 87641; 90471; 90715; 94664; 94760; 94762; 97110-GP; 97116-GP; 97162-GP; 97165-GO; 97530-GP; 97535-GO; A9270-GY; C1713; C1776; J0171; J0690; J0697; J1885; J2250; J2270; J2405; J2550; J2704; J3010; J3490; J7050; J7120

== ENCOUNTER 2017-08-07 07:58 | Day surgery (SDC) | payer MEDICARE, OTHER ==
[~2017-08-07 07:58] MED LIST changes: +Acetaminophen 325 MG Tab PO ONE; -Bisacodyl 5 MG Tab PO PRN; +Bupivacaine 0.25% 30 ML SDV ONE; +Iodine/Sodium Iodide 2% Tincture 30 ML Bottle ONE; +Lactated Ringers 1,000 ML IV SCH; +Lidocaine 1%/Sod Bicarbonate in NS 8.4% 1 ML Syringe IDERM PRN; -Lidocaine 1%/Sod Bicarbonate in NS 8.4% 1 ML Syringe IV PRN; -Morphine 2 MG/ML Syringe IVPUSH PRN; +Morphine 4 MG/ML Syringe IVPUSH PRN; -Ondansetron 4 MG/2 ML SDV IVPUSH PRN; +Scopolamine 1.5 MG Transdermal Patch TOP SCH; +Vancomycin 1 GM SDV ONE; +ceFAZolin 1 GM Vial ONE
[2017-08-07] MEDS ORDERED: oxyCODONE ER 10 MG TAB.ER PO ONE (08:20)
[2017-08-07] MEDS ORDERED: fentaNYL 100 MCG/2 ML SDV ONE (08:30)
[2017-08-07] MEDS ORDERED: Propofol 200 MG/20 ML SDV ONE ×2 (08:30→10:30)
[2017-08-07] MEDS ORDERED: Ondansetron 4 MG/2 ML SDV ONE (08:30)
[2017-08-07] MEDS ORDERED: Lidocaine 1% 4 ML ONE (08:31)
[2017-08-07] MEDS ORDERED: ceFAZolin 1 GM Vial ONE (08:31)
[2017-08-07] MEDS ORDERED: Bupivacaine 0.75% 30 ML SDV ONE (08:39)
--- NOTE | 2017-08-07 08:44 | PCM.PREANE ---
Preanesthetic Assessment - Anesthesia/Transfusion/Family Hx Anesthesia History: No Prior Anesthesia Family History of Anesthesia Reaction: No Transfusion History: Prior Transfusion Without Reaction - Review of Systems General: No Symptoms Pulmonary: No Symptoms Cardiovascular: No Symptoms Gastrointestinal: No Symptoms, Constipation Neurological: Numbness (toes one in a while) Other: Reports: Diabetes, Thyroid Problems (hypothyroid) - Physical Assessment NPO Status Date: 08/06/17 NPO Status Time: 19:30 Pulse: 67 O2 Sat by Pulse Oximetry: 97 Respiratory Rate: 16 Blood Pressure: 161/76 Temperature: 36.9 C Height: 1.57 m Weight: 96.162 kg ASA Class: 3 Mental Status: Alert & Oriented x3 Airway Class: Mallampati = 2 Dentition: Reports: Normal Dentition, [place](s) Thyro-Mental Finger Breadths: 2 Mouth Opening Finger Breadths: 3 ROM/Head Extension: Full Lungs: Clear to Auscultation, Normal Respiratory Effort Cardiovascular: Regular Rate, Regular Rhythm, No Murmurs - Lab Values: Laboratory Last Values MRSA (PCR) Negative 07/26/17 14:40 - Imaging/EKG Impressions: EKG 68BPM SR - Allergies Allergies/Adverse Reactions: Allergies Allergy/AdvReac Type Severity Reaction Status Date / Time amlodipine [From Norvasc] Allergy Swelling Verified 08/04/17 12:53 levofloxacin [From Levaquin] Allergy Hives Verified 08/04/17 12:53 Beta-Blockers AdvReac Cough Verified 08/04/17 12:53 (Beta-Adrenergic Bloc sitagliptin AdvReac Nausea Verified 08/04/17 12:53 - Anesthesia Plan Pre-Op Medication Ordered: None - Acknowledgements Anesthesia Type Planned: Spinal, Regional Block (femoral block for post-op pain control) Pt an Appropriate Candidate for the Planned Anesthesia: Yes Alternatives and Risks of Anesthesia Discussed w Pt/Guardian: Yes Pt/Guardian Understands and Agrees with Anesthesia Plan: Yes PreAnesthesia Questionnaire HEENT History: Reports: Cataract, Impaired Vision Other HEENT History: glasses Cardiovascular History: Reports: Angina, High Cholesterol, Hypertension Other Cardiovascular History: bradycardia, chest pain, pericardial cyst and pericardial effusion Respiratory History: Reports: Sleep Apnea, SOB Other Respiratory History: dypsnea Gastrointestinal History: Reports: Colon Polyp, GERD, Helicobacter Pylori Other Gastrointestinal History: abdominal pain Genitourinary History: Reports: Other (See Below) Other Genitourinary History: CKD III, breast lump mass, vaginal leukorrhea, vaginitis [employer]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 Musculoskeletal History: Reports: Arthritis, Back Pain, Chronic, Osteoarthritis , Osteoporosis, Other (See Below) Other Musculoskeletal History: back ache, cericlagia, joint pain, OA, shoulder sprain, arthritis Neurological History: Reports: Other (See Below) Other Neuro History: cericlagia, dizziness Psychiatric History: Reports: None Endocrine/Metabolic History: Reports: Diabetes, Type II, Hypothyroidism, Obesity /BMI 30+ Hematologic History: Reports: Other (See Below) Other Hematologic History: hypokalemia Immunologic History: Reports: None Oncologic (Cancer) History: Reports: None Dermatologic History: Reports: Other (See Below) Other Dermatologic History: lipomas, seborrheic dermatitis, middle R finger excsion - Past Surgical History Head Surgeries/Procedures: Reports: None HEENT Surgical History: Reports: Cataract Surgery, Tonsillectomy Cardiovascular Surgical History: Reports: None Respiratory Surgical History: Reports: None GI Surgical History: Reports: Colonoscopy Female Surgical History: Reports: Breast Biopsy Male Surgical History: Reports: None Endocrine Surgical History: Reports: None Neurological Surgical History: Reports: None Musculoskeletal Surgical History: Reports: Ganglion Cyst, Knee Replacement - SUBSTANCE USE Smoking Status *Q: Never Smoker Tobacco Use Within Last Twelve Months: No Second Hand Smoke Exposure: No Days Per Week of Alcohol Use: 1 Number of Drinks Per Day: 2 Total Drinks Per Week: 2 Recreational Drug Use History: No - HOME MEDS Home Medications: Home Meds Furosemide [Lasix] 80 mg PO DAILY 11/26/14 [History] Levothyroxine [Synthroid] 50 mcg PO DAILY 11/26/14 [History] Omeprazole [Prilosec] 20 mg PO DAILY 11/26/14 [History] Potassium Chloride 30 mg PO QPM 11/26/14 [History] Potassium Chloride 40 mg PO QAM 11/26/14 [History] Calcium Carb & Citrate/Vit D3 [Calcium + D3 ER Tablet] 1 tab PO BID 01/16/16 [ History] metFORMIN [Glucophage XR] 500 mg PO BID 01/16/16 [History] Doxazosin Mesylate 1 mg PO BEDTIME 09/02/16 [History] Gluc HCl/Csa/Kay Hy/Hyalur Ac [Glucosamine Chondroitin] 1 cap PO DAILY [History] Losartan [Cozaar] 100 mg PO DAILY 09/02/16 [History] Aspirin 81 mg PO DAILY 08/04/17 [History] Atenolol 50 mg PO DAILY 08/04/17 [History] Fish Oil/Climax-3 Fatty Acids [Fish Oil 1,000 MG] 1 gm PO DAILY 08/04/17 [History ] Latanoprost [Xalatan 0.005% Ophth Soln] 1 drop EYEBOTH BEDTIME 08/04/17 [History ] Magnesium Gluconate [Magonate] 1 tab PO DAILY 08/04/17 [History] Propylene Glycol/PEG 400/Pf [Systane 0.3-0.4% Eye Drops] 1 drop EYEBOTH DAILY [History] - CURRENT (IN HOUSE) MEDS Current Meds: Current Medications Aspirin (Ecotrin) 325 mg PO BID MARIXA Bisacodyl (Dulcolax) 5 mg PO DAILY PRN PRN Reason: Constipation Morphine Sulfate 8 mg/Epinephrine HCl 0.3 mg/Cefuroxime Sodium 750 mg/Ketorolac Tromethamine 30 mg/Sodium Chloride 27.9 ml 0 mg .XX ONETIME ONE Stop: 08/07/17 09:46 Cyclobenzaprine HCl (Flexeril) 10 mg PO TID PRN PRN Reason: Spasms Diphenhydramine HCl (Benadryl) 25 mg IVPUSH Q6H PRN PRN Reason: Nausea Docusate Sodium (Colace) 100 mg PO BID MARIXA Famotidine (Pepcid) 20 mg PO Q12H [facility] Lactated Ringer's (Ringers, Lactated) 1,000 mls @ 125 mls/hr IV ASDIRECTED [facility] Stop: 08/07/17 23:00 Cefazolin Sodium/Dextrose 2 gm (/ Premix) 50 mls @ 100 mls/hr IV Q8H [facility] Stop: 08/08/17 08:59 Lidocaine/Sodium Bicarbonate (Buffered Lidocaine 1% In Ns 8.4%) 0.25 ml IDERM ONETIME PRN PRN Reason: Prior to IV Start Stop: 08/07/17 18:00 Magnesium Hydroxide (Milk Of Magnesia) 30 ml PO BID PRN PRN Reason: Constipation Morphine Sulfate (Morphine) 2 mg IVPUSH Q2H PRN PRN Reason: Breakthrough Pain Naloxone HCl (Narcan) 0.1 mg IVPUSH Q5M PRN PRN Reason: Oversedation Ondansetron HCl (Zofran) 4 mg IVPUSH Q6H PRN PRN Reason: Nausea/Vomiting Oxycodone/Acetaminophen (Percocet 325-5 Mg) 1 - 2 tab PO Q4H PRN PRN Reason: Pain Pregabalin (Lyrica) 50 mg PO TID MARIX[facility] Scopolamine (Transderm-Scop) 1.5 mg TOP ONETIME [facility] Stop: 08/07/17 18:00 Senna (Senna) 8.6 mg PO BID PRN PRN Reason: Constipation Sodium Chloride (Saline Flush) 10 ml FLUSH ASDIRECTED PRN PRN Reason: Keep Vein Open Stop: 08/07/17 18:00 Discontinued Medications Acetaminophen (Tylenol) 975 mg PO NOW ONE Stop: 08/07/17 07:30 Bupivacaine HCl (Marcaine 0.25%) Confirm Administered Dose 30 ml .ROUTE .STK- MED ONE Stop: 08/07/17 07:59 Bupivacaine HCl (Sensorcaine-Mpf 0.75%) Confirm Administered Dose 30 ml .ROUTE .STK-MED ONE Stop: 08/07/17 08:40 Cefazolin Sodium (Ancef) Confirm Administered Dose 2 gm .ROUTE .STK-MED ONE Stop: 08/07/17 07:59 Cefazolin Sodium (Ancef) Confirm Administered Dose 2 gm .ROUTE .STK-MED ONE Stop: 08/07/17 08:32 Fentanyl (Sublimaze) Confirm Administered Dose 100 mcg .ROUTE .STK-MED ONE Stop: 08/07/17 08:31 Lidocaine HCl (Xylocaine-Mpf 1%) Confirm Administered Dose 4 mls @ as directed .ROUTE .STK-MED ONE Stop: 08/07/17 08:32 Iodine (Iodine 2% Mild Tincture) Confirm Administered Dose 30 ml .ROUTE .STK- MED ONE Stop: 08/07/17 07:59 Lidocaine HCl (Xylocaine-Mpf 1%) Confirm Administered Dose 5 ml .ROUTE .STK-MED ONE Stop: 08/07/17 08:39 Ondansetron HCl (Zofran) Confirm Administered Dose 4 mg .ROUTE .STK-MED ONE Stop: 08/07/17 08:31 Oxycodone HCl (Oxycontin) 10 mg PO ONETIME ONE Stop: 08/07/17 08:21 Propofol (Diprivan 20 Ml) Confirm Administered Dose 200 mg .ROUTE .STK-MED ONE Stop: 08/07/17 08:31 Tranexamic Acid (Cyklokapron) Confirm Administered Dose 1,000 mg .ROUTE .STK- MED ONE Stop: 08/07/17 07:59 Vancomycin HCl (Vancomycin) Confirm Administered Dose 1 gm .ROUTE .STK-MED ONE Stop: 08/07/17 07:59
[2017-08-07] MEDS: Pregabalin 25 MG Cap PO SCH ×2 (09:10→18:46)
[2017-08-07] MEDS ORDERED: Ketamine 500 mg/10 ML MDV ONE (09:47)
[2017-08-07] MEDS ORDERED: Magnesium Hydroxide 400 MG/5 ML Susp 30 ML Cup PO PRN (10:00)
[2017-08-07] MEDS ORDERED: diphenhydrAMINE 50 MG/ML SDV IVPUSH PRN ×2 (10:00→11:42)
[2017-08-07] MEDS ORDERED: Naloxone 0.4 MG/ML SDV IVPUSH PRN (10:00)
[2017-08-07] MEDS ORDERED: Ondansetron 4 MG/2 ML SDV IVPUSH PRN (10:00)
[2017-08-07] MEDS ORDERED: Bisacodyl 5 MG Tab PO PRN (10:00)
[2017-08-07] MEDS ORDERED: Sennosides 8.6 MG Tab PO PRN (10:00)
[2017-08-07] MEDS ORDERED: Cyclobenzaprine 10 MG Tab PO PRN (10:00)
[2017-08-07] MEDS ORDERED: Ketorolac 30 MG/ML SDV ONE (10:29)
[2017-08-07] MEDS: Morphine 8 MG, EPINEPHrine 0.3 MG, Cefuroxime 750 MG, Ketorolac 30 MG, Sodium Chloride ... ONE ×10 (10:55→18:44)
[2017-08-07] MEDS ORDERED: ePHEDrine/Normal Saline 25 MG/5 ML Syringe ONE (10:58)
[2017-08-07] MEDS ORDERED: EPINEPHrine 1 MG/ML SDV ONE (11:07)
[2017-08-07] MEDS ORDERED: Ropivacaine 0.5% 5 MG/ML 30 ML SDV ONE (11:07)
[2017-08-07] MEDS ORDERED: fentaNYL 100 MCG/2 ML SDV IVPUSH PRN (11:42)
--- NOTE | 2017-08-07 11:44 | PCM.POSTAN ---
POST ANESTHESIA ASSESSMENT - MENTAL STATUS Mental Status: Alert, Oriented - VITAL SIGNS Pulse Rate: 64 SaO2: 97 Resp Rate: 10 Blood Pressure: 127/48 Temperature: 36.2 C - RESPIRATORY Respiratory Status: Respiratory Rate WNL, Airway Patent, O2 Saturation Stable, Supplemental Oxygen - CARDIOVASCULAR CV Status: Pulse Rate WNL, Blood Pressure Stable - GASTROINTESTINAL GI Status: No Symptoms - PAIN Pain Score: 0 - POST OP HYDRATION Hydration Status: Adequate & Stable - OBSERVATIONS Free Text/Narrative:: no anesthesia complications noted
[2017-08-07] MEDS ORDERED: Haloperidol Lactate 5 MG/ML SDV IVPUSH STA (11:57)
--- NOTE | 2017-08-07 12:47 | PCM.SN ---
- Free Text/Narrative Note: Anesthesia Note: Date: 08/07/2017 Start: 1203 Stop: 1211 Procedure: Right Femoral Nerve Block Under US Guidance for post operative pain control requested by Dr. Amezcua. Patient chart reviewed, allergies noted, and risk/benefits discussed with consent obtained. Patient placed in supine position, monitors/alarms on, O2 placed via nasal cannula at 2LP. Sterile technique noted with sterile gloves, cap, mask, and sterile drapes. Right groin area prepped with chloroprep times two. Femoral artery, Femoral vein, and Femoral nerve branch visualized under US guidance (sterile sleeve) noted. Stimiplex 21 gauge 4 inch needle advanced under US guidance. Ropivacaine 0.5% with 1:200,000 epinephrine injected incrementally with negative aspirations for a total volume of 25 ml's. VSS no complains of.
--- NOTE | 2017-08-07 15:13 | CR ---
Right knee: Two views of the right knee were obtained. Comparison: No prior right knee exam. Knee prosthesis is seen. Components are aligned. Soft tissue air is noted from the surgical procedure. Underlying bony structures are intact. Impression: 1. Satisfactory postoperative radiographic appearance of recently placed right knee prosthesis. Diagnostic code #2
[2017-08-07] MEDS ORDERED: Potassium Chloride 10 MEQ Tab.ER PO SCH (17:00)
[2017-08-07] MEDS: metFORMIN 500 MG Tab PO SCH (17:02)
[2017-08-07] MEDS: ceFAZolin 2 GM in Premix Bag 1 BAG IV SCH (17:03)
[2017-08-07] MEDS ORDERED: Famotidine 20 MG Tab PO SCH (21:00)
[2017-08-07] MEDS ORDERED: Latanoprost 0.005% Ophth Soln 2.5 ML Bottle EYEBOTH SCH (21:00)
[2017-08-07] MEDS ORDERED: Doxazosin 2 MG Tab PO SCH (21:00)
[2017-08-07] MEDS: Calcium Carbonate/Vitamin D3 600 MG-200 Units Tab PO SCH (21:08)
[2017-08-07] MEDS: Docusate Sodium 100 MG Cap PO SCH (21:09)
[2017-08-08] MEDS: ceFAZolin 2 GM in Premix Bag 1 BAG IV SCH ×2 (00:40→08:57)
[2017-08-08] MEDS ORDERED: Levothyroxine 50 MCG Tab PO SCH (06:00)
[2017-08-08] MEDS: Acetaminophen/oxyCODONE 325-5 MG Tab PO PRN ×2 (06:13→13:32)
[2017-08-08] MEDS: metFORMIN 500 MG Tab PO SCH (06:15)
--- NOTE | 2017-08-08 06:57 | PCM.CONS ---
H&P History of Present Illness - General Date of Service: 08/08/17 Admit Problem/Dx: Admission Diagnosis/Problem Admission Diagnosis/Problem Osteoarthritis of knee Source of Information: Patient, Old Records, Provider, RN History Limitations: Reports: No Limitations - History of Present Illness Initial Comments - Free Text/Narative: Ruby Juarez is a 77 yo [address] patient of Dr. Amezcua who is post-operative day 1 of right TKA. Hospital medicine was consulted for post-operative medical care. At this time she is resting comfortably in bed. Pain is controlled. She denies any chest pain, shortness of breath, palpitations, or vomiting. She did have some mild nausea today which is improving. She has refused treatment for this thus far and states it is very minor. She carries a history of: Angina, HLD , HTN, bradycardia, sleep apnea, GERD, CKD stage III, arthritis, chronic back pain, osteoarthritis, osteoperosis,Type II DM, hypothyroidism, obesity, prior left TKA. She was never a smoker. She is a full code. Her primary care provider is Dr. Solis at [facility]. - Related Data Allergies/Adverse Reactions: Allergies Allergy/AdvReac Type Severity Reaction Status Date / Time amlodipine [From Norvasc] Allergy Swelling Verified 08/07/17 09:31 levofloxacin [From Levaquin] Allergy Hives Verified 08/07/17 09:31 Beta-Blockers AdvReac Cough Verified 08/07/17 09:31 (Beta-Adrenergic Bloc sitagliptin AdvReac Nausea Verified 08/07/17 09:31 Home Medications: Home Meds Furosemide [Lasix] 80 mg PO DAILY 11/26/14 [History] Levothyroxine [Synthroid] 50 mcg PO DAILY 11/26/14 [History] Omeprazole [Prilosec] 20 mg PO DAILY 11/26/14 [History] Potassium Chloride 30 mg PO QPM 11/26/14 [History] Potassium Chloride 40 mg PO QAM 11/26/14 [History] Calcium Carb & Citrate/Vit D3 [Calcium + D3 ER Tablet] 1 tab PO BID 01/16/16 [ History] Doxazosin Mesylate 1 mg PO BEDTIME 09/02/16 [History] Gluc HCl/Csa/Kay Hy/Hyalur Ac [Glucosamine Chondroitin] 1 cap PO DAILY [History] Losartan [Cozaar] 100 mg PO DAILY 09/02/16 [History] Atenolol 50 mg PO DAILY 08/04/17 [History] Latanoprost [Xalatan 0.005% Ophth Soln] 1 drop EYEBOTH BEDTIME 08/04/17 [History ] Magnesium Gluconate [Magonate] 1 tab PO DAILY 08/04/17 [History] Propylene Glycol/PEG 400/Pf [Systane 0.3-0.4% Eye Drops] 1 drop EYEBOTH DAILY [History] Acetaminophen/oxyCODONE [Percocet 325-5 MG] 1 - 2 tab PO Q6H PRN #60 tablet 01/16 [Rx] Aspirin [Ecotrin] 325 mg PO BID #84 tab.ec 08/07/17 [Rx] Bisacodyl [Dulcolax] 5 mg PO DAILY PRN tablet 08/07/17 [Rx] Cyclobenzaprine [Flexeril] 10 mg PO TID PRN #40 tablet 08/07/17 [Rx] Docusate Sodium [Colace] 100 mg PO BID cap 08/07/17 [Rx] Famotidine [Pepcid] 20 mg PO Q12H tablet 08/07/17 [Rx] Magnesium Hydroxide [Milk of Magnesia] 30 ml PO BID PRN cup 08/07/17 [Rx] Sennosides [Senna] 8.6 mg PO BID PRN tablet 08/07/17 [Rx] metFORMIN [Glucophage] 500 mg PO BIDMEALS 08/07/17 [History] Ondansetron [Zofran ODT] 4 mg PO Q6H PRN #20 tab.dis 08/08/17 [Rx] Past Medical History HEENT History: Reports: Cataract, Impaired Vision Other HEENT History: glasses Cardiovascular History: Reports: Angina, High Cholesterol, Hypertension Other Cardiovascular History: bradycardia, chest pain, pericardial cyst and pericardial effusion Respiratory History: Reports: Sleep Apnea, SOB Other Respiratory History: dypsnea Gastrointestinal History: Reports: Colon Polyp, GERD, Helicobacter Pylori Other Gastrointestinal History: abdominal pain Genitourinary History: Reports: Other (See Below) Other Genitourinary History: CKD III, breast lump mass, vaginal leukorrhea, vaginitis 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 INSPECTOR History: Reports: None Musculoskeletal History: Reports: Arthritis, Back Pain, Chronic, Osteoarthritis , Osteoporosis, Other (See Below) Other Musculoskeletal History: back ache, cericlagia, joint pain, OA, shoulder sprain, arthritis Neurological History: Reports: Other (See Below) Other Neuro History: cericlagia, dizziness Psychiatric History: Reports: None Endocrine/Metabolic History: Reports: Diabetes, Type II, Hypothyroidism, Obesity /BMI 30+ Hematologic History: Reports: Other (See Below) Other Hematologic History: hypokalemia Immunologic History: Reports: None Oncologic (Cancer) History: Reports: None Dermatologic History: Reports: Other (See Below) Other Dermatologic History: lipomas, seborrheic dermatitis, middle R finger excsion - Past Surgical History Head Surgeries/Procedures: Reports: None HEENT Surgical History: Reports: Cataract Surgery, Tonsillectomy Cardiovascular Surgical History: Reports: None Respiratory Surgical History: Reports: None GI Surgical History: Reports: Colonoscopy Female Surgical History: Reports: Breast Biopsy Male Surgical History: Reports: None Endocrine Surgical History: Reports: None Neurological Surgical History: Reports: None Musculoskeletal Surgical History: Reports: Ganglion Cyst, Knee Replacement Social & Family History - Tobacco Use Smoking Status *Q: Never Smoker Second Hand Smoke Exposure: No - Caffeine Use Caffeine Use: Reports: Coffee - Alcohol Use Days Per Week of Alcohol Use: 1 Number of Drinks Per Day: 2 Total Drinks Per Week: 2 - Recreational Drug Use Recreational Drug Use: No H&P Review of Systems - Review of Systems: Review Of Systems: See Below General: Reports: No Symptoms HEENT: Reports: No Symptoms Pulmonary: Reports: No Symptoms Cardiovascular: Reports: No Symptoms Gastrointestinal: Reports: No Symptoms Genitourinary: Reports: No Symptoms Musculoskeletal: Reports: Joint Pain Skin: Reports: No Symptoms Psychiatric: Reports: No Symptoms Neurological: Reports: No Symptoms Hematologic/Lymphatic: Reports: No Symptoms Immunologic: Reports: No Symptoms Exam - Exam Exam: See Below - Vital Signs Vital Signs: Last Vital Signs Temp 97.9 F 08/08/17 04:13 Pulse 77 08/08/17 04:13 Resp 18 08/08/17 04:13 BP 148/46 H 08/08/17 04:13 Pulse Ox 95 08/08/17 04:13 Weight: 212 lb - Exam Quality Assessment: DVT Prophylaxis General: Alert, Oriented, Cooperative. No: Mild Distress HEENT: Conjunctiva Clear, EACs Clear, EOMI, Hearing Intact, Mucosa Moist & [place] , Nares Patent, Posterior Pharynx Clear, PERRLA Neck: Supple, Trachea Midline Lungs: Clear to Auscultation, Normal Respiratory Effort Cardiovascular: Regular Rate, Regular Rhythm GI/Abdominal Exam: Normal Bowel Sounds, Soft, Non-Tender, No Organomegaly, No Distention, No Abnormal Bruit, No Mass, Pelvis Stable (Female) Exam: Deferred Rectal (Female) Exam: Deferred Back Exam: Normal Inspection, Full Range of Motion Extremities: No Pedal Edema, Normal Capillary Refill, Leg Pain, Limited Range of Motion, Other (JODIE bandage in place on right leg. Bandage is dry and intact. Cooling pack in place) Peripheral Pulses: 2+: Radial (L), Radial (R), Posterior Tibial (L), Posterior Tibial (R), Dorsalis Pedis (L), Dorsalis Pedis (R) Skin: Warm, Dry, Intact Neurological: Cranial Nerves Intact (grossly) Neuro Extensive - Mental Status: Alert, Oriented x3, Normal Mood/Affect, Normal Cognition, Memory Intact Psychiatric: Alert, Normal Affect, Normal Mood - Patient Data Lab Results Last 24 hrs: Laboratory Results - last 24 hr 08/07/17 08/07/17 08/08/17 Range/Units 08:49 13:45 05:18 WBC 7.63 (3.98-10.04) K/mm3 RBC 3.52 L (3.98-5.22) M/mm3 Hgb 11.0 L (11.2-15.7) gm/L Hct 32.9 L (34.1-44.9) % MCV 93.5 (79.4-94.8) fl MCH 31.3 (25.6-32.2) pg MCHC 33.4 (32.2-35.5) g/dl RDW Std Deviation 44.2 (36.4-46.3) fL Plt Count 194 (182-369) K/mm3 MPV 9.9 (9.4-12.3) fl POC Glucose 112 H 154 H (83-110) mg/dL Result Diagrams: 08/08/17 05:18 08/08/17 05:18 Consult PN Assessment/Plan POD#: 1 Procedures: Procedures ASSAY OF TROPONIN QUANT (11/26/14) CO/MEMBANE DIFFUSE CAPACITY (12/26/14) COMP SCREEN MAMMOGRAM ADD-ON (09/07/15) COMPLETE CBC W/AUTO DIFF WBC (09/05/16) COMPREHEN METABOLIC PANEL (09/05/16) CT ABD & PELV W/CONTRAST (04/16/15) CT ANGIOGRAPHY CHEST (12/17/14) CT HEAD/BRAIN W/O DYE (11/26/14) DXA BONE DENSITY AXIAL (09/07/15) ELECTROCARDIOGRAM TRACING (11/26/14) EMERGENCY DEPT VISIT (01/16/16) EVALUATE PT USE OF INHALER (09/05/16) EVALUATION OF WHEEZING (12/26/14) EXTREMITY STUDY (01/16/16) FIBRIN DEGRADATION QUANT (01/16/16) GAIT TRAINING THERAPY (09/05/16) GLUCOSE BLOOD TEST (09/05/16) IMMUNIZATION ADMIN (09/05/16) MEASURE BLOOD OXYGEN LEVEL (09/05/16) MEASURE BLOOD OXYGEN LEVEL (09/05/16) METABOLIC PANEL TOTAL CA (09/05/16) MR-STAPH DNA AMP PROBE (09/05/16) OT EVAL LOW COMPLEX 30 MIN (09/05/16) PROTHROMBIN TIME (09/05/16) PT EVAL MOD COMPLEX 30 MIN (09/05/16) ROUTINE VENIPUNCTURE (09/05/16) SELF CARE MNGMENT TRAINING (09/05/16) THER/PROPH/DIAG INJ IV PUSH (11/26/14) THERAPEUTIC ACTIVITIES (09/05/16) THERAPEUTIC EXERCISES (09/05/16) THROMBOPLASTIN TIME PARTIAL (09/05/16) TX/PRO/DX INJ NEW DRUG ADDON (11/26/14) ULTRASOUND BREAST LIMITED (08/16/16) URINALYSIS AUTO W/SCOPE (11/26/14) X-RAY EXAM OF KNEE 1 OR 2 (09/05/16) (1) S/P total knee arthroplasty SNOMED Code(s): 7247484086986, 684588746, 9072053181756 Code(s): Z96.659 - PRESENCE OF UNSPECIFIED ARTIFICIAL KNEE JOINT Priority: High Current Visit: Yes Qualifiers: Laterality: right Qualified Code(s): Z96.651 - Presence of right artificial knee joint (2) Osteoarthritis SNOMED Code(s): 117790373 Code(s): M19.90 - UNSPECIFIED OSTEOARTHRITIS, UNSPECIFIED SITE Priority: High Current Visit: Yes Qualifiers: Osteoarthritis location: knee Osteoarthritis type: primary Laterality: right Qualified Code(s): M17.11 - Unilateral primary osteoarthritis, right knee (3) CKD (chronic kidney disease) SNOMED Code(s): 809767250 Code(s): N18.9 - CHRONIC KIDNEY DISEASE, UNSPECIFIED Priority: Medium Current Visit: No Qualifiers: Chronic kidney disease stage: stage 2 (mild) Qualified Code(s): N18.2 - Chronic kidney disease, stage 2 (mild) (4) GERD (gastroesophageal reflux disease) SNOMED Code(s): 068564093 Code(s): K21.9 - GASTRO-ESOPHAGEAL REFLUX DISEASE WITHOUT ESOPHAGITIS Priority: Medium Current Visit: No Qualifiers: Esophagitis presence: esophagitis presence not specified Qualified Code(s) : K21.9 - Gastro-esophageal reflux disease without esophagitis (5) HLD (hyperlipidemia) SNOMED Code(s): 06182610 Code(s): E78.5 - HYPERLIPIDEMIA, UNSPECIFIED Priority: Medium Current Visit: No Qualifiers: Hyperlipidemia type: unspecified Qualified Code(s): E78.5 - Hyperlipidemia , unspecified (6) HTN (hypertension) SNOMED Code(s): 67687930 Code(s): I10 - ESSENTIAL (PRIMARY) HYPERTENSION Priority: Medium Current Visit: No Qualifiers: Hypertension type: essential hypertension Qualified Code(s): I10 - Essential (primary) hypertension (7) Type 2 diabetes mellitus SNOMED Code(s): 01160226 Code(s): E11.9 - TYPE 2 DIABETES MELLITUS WITHOUT COMPLICATIONS Priority: Medium Current Visit: No Qualifiers: Diabetes mellitus oil heaterman insulin use: without oil heaterman use Diabetes mellitus complication status: without complication Qualified Code(s): E11.9 - Type 2 diabetes mellitus without complications Problem List Initiated/Reviewed/Updated: Yes Plan: I/P: Acute: S/P right total knee arthroplasty - post-operative day 1 -DVT prophylaxis and pain management per primary care team -PT/OT -IS/RT -Monitor oxygen saturation -Titrate oxygen as needed -Vital signs stable -Monitor labs -Pre-operative Hgb was 13.1, now 11 -Pre-operative A1C 6.0 -Pre-operative GFR 43, now 44 Osteoarthritis of right knee -Pain management per primary care team Chronic: Angina HLD HTN Bradycardia Sleep Apnea GERD CKD Stage III Chronic back pain Arthritis Osteoporosis Type II DM Hypothyroidism Obesity Plan: CM for discharge planning GI prophylaxis Home medications as indicated Other orders as listed above Routine AM labs She is a full code. Her PCP is Dr. Solis at [facility] She is doing well today. She has been working with PT/OT and doing well. She has urinated. She has had some mild nausea today which is improving. Labs look good. From a hospitalist standpoint she is clear for discharge pending primary team approval. Thank you for allowing us to participate in the care of this patient!! Requesting Provider: Dr. Amezcua Date Consult Requested: 08/07/17 Reason for Consult: Post-operative medical management Patient History Reviewed: Yes Admission H&P Reviewed: Yes Time Spent (in minutes): 35
[2017-08-08] MEDS ORDERED: Pantoprazole 40 MG Tab.CR PO SCH (07:00)
[2017-08-08] MEDS: Calcium Carbonate/Vitamin D3 600 MG-200 Units Tab PO SCH (08:05)
[2017-08-08] MEDS: Docusate Sodium 100 MG Cap PO SCH (08:06)
[2017-08-08] MEDS ORDERED: Magnesium Oxide 400 MG Tab PO SCH (09:00)
[2017-08-08] MEDS ORDERED: Hypromellose 0.5% Ophth Soln 15 ML Bottle EYEBOTH SCH (09:00)
[2017-08-08] MEDS ORDERED: Atenolol 50 MG Tab PO SCH (09:00)
[2017-08-08] MEDS ORDERED: Furosemide 80 MG Tab PO SCH (09:00)
[2017-08-08] MEDS ORDERED: Losartan 100 MG Tab PO SCH (09:00)
[2017-08-08] MEDS ORDERED: Aspirin 325 MG Tab.EC PO SCH (09:00)
[2017-08-08] MEDS ORDERED: Potassium Chloride 20 MEQ Tab.ER PO SCH (09:00)
[2017-08-08 13:08] VITALS: BP 127/66
--- NOTE | 2017-08-09 10:55 | PCM.SURGPN ---
- General Info Date of Service: 08/08/17 POD#: 1 Functional Status: Reports: Pain Controlled, Tolerating Diet, Ambulating, Urinating, Incentive Spirometry - Review of Systems Musculoskeletal: Reports: Other (The pt has met inpatient therapy goals and is prepared for discharge to home.) - Patient Data Vitals - Most Recent: Last Vital Signs Temp 99.0 F 08/08/17 13:05 Pulse 67 08/08/17 13:05 Resp 14 08/08/17 13:05 BP 127/66 08/08/17 13:05 Pulse Ox 93 L 08/08/17 13:05 Weight - Most Recent: 212 lb Med Orders - Current: Current Medications Discontinued Medications Acetaminophen (Tylenol) 975 mg PO NOW ONE Stop: 08/07/17 07:30 Last Admin: 08/07/17 09:10 Dose: 975 mg Artificial Tears (Isopto Tears 0.5% Ophth Soln) 0 ml EYEBOTH DAILY [facility] Last Admin: 08/08/17 08:59 Dose: 1 drop Aspirin (Ecotrin) 325 mg PO BID [facility] Last Admin: 08/08/17 08:06 Dose: 325 mg Atenolol (Tenormin) 50 mg PO DAILY [facility] Last Admin: 08/08/17 08:06 Dose: 50 mg Bisacodyl (Dulcolax) 5 mg PO DAILY PRN PRN Reason: Constipation Bupivacaine HCl (Marcaine 0.25%) Confirm Administered Dose 30 ml .ROUTE .STK- MED ONE Stop: 08/07/17 07:59 Last Admin: 08/07/17 10:56 Dose: 30 ml Bupivacaine HCl (Sensorcaine-Mpf 0.75%) Confirm Administered Dose 30 ml .ROUTE .STK-MED ONE Stop: 08/07/17 08:40 Calcium Carbonate (Calcium Carbonate/Vitamin D 600 Mg-200 Unit) 1 tab PO BID [facility] Last Admin: 08/08/17 08:05 Dose: 1 tab Cefazolin Sodium (Ancef) Confirm Administered Dose 2 gm .ROUTE .STK-MED ONE Stop: 08/07/17 07:59 Last Admin: 08/07/17 10:51 Dose: 2 gm Cefazolin Sodium (Ancef) Confirm Administered Dose 2 gm .ROUTE .STK-MED ONE Stop: 08/07/17 08:32 Morphine Sulfate 8 mg/Epinephrine HCl 0.3 mg/Cefuroxime Sodium 750 mg/Ketorolac Tromethamine 30 mg/Sodium Chloride 27.9 ml 0 mg .XX ONETIME ONE Stop: 08/07/17 09:46 Last Admin: 08/07/17 18:44 Dose: Not Given Cyclobenzaprine HCl (Flexeril) 10 mg PO TID PRN PRN Reason: Spasms Diphenhydramine HCl (Benadryl) 25 mg IVPUSH Q6H PRN PRN Reason: Nausea Diphenhydramine HCl (Benadryl) 25 mg IVPUSH Q6H PRN PRN Reason: Itching Stop: 08/07/17 14:00 Docusate Sodium (Colace) 100 mg PO BID [facility] Last Admin: 08/08/17 08:06 Dose: 100 mg Doxazosin Mesylate (Cardura) 1 mg PO BEDTIME [facility] Last Admin: 08/07/17 21:09 Dose: 1 mg Ephedrine Sulfate (Ephedrine In Ns) Confirm Administered Dose 25 mg .ROUTE .STK- MED ONE Stop: 08/07/17 10:59 Epinephrine HCl (Adrenalin) Confirm Administered Dose 1 mg .ROUTE .STK-MED ONE Stop: 08/07/17 11:08 Famotidine (Pepcid) 20 mg PO Q12H [facility] Fentanyl (Sublimaze) Confirm Administered Dose 100 mcg .ROUTE .STK-MED ONE Stop: 08/07/17 08:31 Fentanyl (Sublimaze) 50 mcg IVPUSH Q5M PRN PRN Reason: PAIN Stop: 08/07/17 14:00 Furosemide (Lasix) 80 mg PO DAILY [facility] Last Admin: 08/08/17 08:06 Dose: 80 mg Haloperidol Lactate (Haldol) 1 mg IVPUSH ONETIME STA Stop: 08/07/17 11:58 Last Admin: 08/07/17 12:15 Dose: 1 mg Lactated Ringer's (Ringers, Lactated) 1,000 mls @ 125 mls/hr IV ASDIRECTED [facility] Stop: 08/07/17 23:00 Cefazolin Sodium/Dextrose 2 gm (/ Premix) 50 mls @ 100 mls/hr IV Q8H MARIXA Stop: 08/08/17 08:59 Last Admin: 08/08/17 08:57 Dose: 100 mls/hr Lidocaine HCl (Xylocaine-Mpf 1%) Confirm Administered Dose 4 mls @ as directed .ROUTE .STK-MED ONE Stop: 08/07/17 08:32 Iodine (Iodine 2% Mild Tincture) Confirm Administered Dose 30 ml .ROUTE .STK- MED ONE Stop: 08/07/17 07:59 Last Admin: 08/07/17 10:49 Dose: 18 ml Ketamine HCl (Ketalar) Confirm Administered Dose 500 mg .ROUTE .STK-MED ONE Stop: 08/07/17 09:48 Ketorolac Tromethamine (Toradol) Confirm Administered Dose 30 mg .ROUTE .STK- MED ONE Stop: 08/07/17 10:30 Latanoprost (Xalatan 0.005% Ophth Soln) 0 ml EYEBOTH BEDTIME [facility] Last Admin: 08/07/17 21:10 Dose: 1 drop Levothyroxine Sodium (Synthroid) 50 mcg PO ACBREAKFAST [facility] Last Admin: 08/08/17 06:15 Dose: 50 mcg Lidocaine HCl (Xylocaine-Mpf 1%) Confirm Administered Dose 5 ml .ROUTE .STK-MED ONE Stop: 08/07/17 08:39 Lidocaine/Sodium Bicarbonate (Buffered Lidocaine 1% In Ns 8.4%) 0.25 ml IDERM ONETIME PRN PRN Reason: Prior to IV Start Stop: 08/07/17 18:00 Last Admin: 08/07/17 08:29 Dose: 0.25 ml Losartan Potassium (Cozaar) 100 mg PO DAILY [facility] Last Admin: 08/08/17 08:05 Dose: 100 mg Magnesium Hydroxide (Milk Of Magnesia) 30 ml PO BID PRN PRN Reason: Constipation Magnesium Oxide (Magnesium Oxide) 400 mg PO DAILY [facility] Last Admin: 08/08/17 08:06 Dose: 400 mg Metformin HCl (Glucophage) 500 mg PO BIDMEALS [facility] Last Admin: 08/08/17 06:15 Dose: 500 mg Morphine Sulfate (Morphine) 2 mg IVPUSH Q2H PRN PRN Reason: Breakthrough Pain Naloxone HCl (Narcan) 0.1 mg IVPUSH Q5M PRN PRN Reason: Oversedation Non-Formulary Medication (Gluc Hcl/Csa/Kay Hy/Hyalur Ac [Glucosamine Chondroitin]) 1 cap PO DAILY [facility] Ondansetron HCl (Zofran) 4 mg IVPUSH Q6H PRN PRN Reason: Nausea/Vomiting Last Admin: 08/07/17 17:58 Dose: 4 mg Ondansetron HCl (Zofran) Confirm Administered Dose 4 mg .ROUTE .STK-MED ONE Stop: 08/07/17 08:31 Oxycodone HCl (Oxycontin) 10 mg PO ONETIME ONE Stop: 08/07/17 08:21 Last Admin: 08/07/17 09:10 Dose: 10 mg Oxycodone/Acetaminophen (Percocet 325-5 Mg) 1 - 2 tab PO Q4H PRN PRN Reason: Pain Last Admin: 08/08/17 13:32 Dose: 2 tab Pantoprazole Sodium (Protonix) 40 mg PO DAILY@0700 [facility] Last Admin: 08/08/17 06:14 Dose: 40 mg Potassium Chloride (Klor-Con 10) 30 meq PO DAILY@1700 [facility] Last Admin: 08/07/17 17:02 Dose: 30 meq Potassium Chloride (Klor-Con M20) 40 meq PO DAILY [facility] Last Admin: 08/08/17 08:06 Dose: 40 meq Pregabalin (Lyrica) 50 mg PO TID [facility] Last Admin: 08/07/17 18:46 Dose: Not Given Propofol (Diprivan 20 Ml) Confirm Administered Dose 200 mg .ROUTE .STK-MED ONE Stop: 08/07/17 08:31 Propofol (Diprivan 20 Ml) Confirm Administered Dose 200 mg .ROUTE .STK-MED ONE Stop: 08/07/17 10:31 Ropivacaine (Naropin 0.5%) Confirm Administered Dose 30 ml .ROUTE .STK-MED ONE Stop: 08/07/17 11:08 Scopolamine (Transderm-Scop) 1.5 mg TOP ONETIME MARIXA Stop: 08/07/17 18:00 Last Admin: 08/07/17 08:48 Dose: 1.5 mg Senna (Senna) 8.6 mg PO BID PRN PRN Reason: Constipation Sodium Chloride (Saline Flush) 10 ml FLUSH ASDIRECTED PRN PRN Reason: Keep Vein Open Stop: 08/07/17 18:00 Tranexamic Acid (Cyklokapron) Confirm Administered Dose 1,000 mg .ROUTE .STK- MED ONE Stop: 08/07/17 07:59 Last Admin: 08/07/17 11:02 Dose: 1,000 mg Vancomycin HCl (Vancomycin) Confirm Administered Dose 1 gm .ROUTE .STK-MED ONE Stop: 08/07/17 07:59 Last Admin: 08/07/17 11:01 Dose: 1 gm - Exam Wound/Incisions: Dressing Dry and Intact General: Alert, Cooperative, No Acute Distress Lungs: Normal Respiratory Effort Extremities: Other (NVS intact for BLE. Jaswant's negative.) - Problem List Review Problem List Initiated/Reviewed/Updated: Yes - Assessment Assessment (Free Text/Narrative):: POD#1 - right TKA - Plan Plan (Free Text/Narrative):: 1. Hgb 11.0. 2. Discharge to home today. 3. Outpatient P.T. 4. 325mg ASA BID, frequent mobility, SCDs. 5. Close monitoring of blood sugars. The pt's case was discussed with Dr. Amezcua.
--- NOTE | 2017-08-15 06:36 | PCM.OPNOTE ---
- General Post-Op/Procedure Note Date of Surgery/Procedure: 08/07/17 Operative Procedure(s): right total knee arthroplasty Pre Op Diagnosis: right knee osteoarthorsis Post-Op Diagnosis: Same Anesthesia Technique: Local, MAC, Spinal Primary Surgeon: Lang Amezcua Anesthesia Provider: Tesfaye Reeves [employer] Software Developer: Ina Rivera [employer] Software Developer: Peace Guadalupe EBL in mLs: 50 Complications: None Condition: Good
--- NOTE | 2017-08-15 07:16 | OR ---
DATE OF OPERATION: 08/07/2017 SURGEON: Lang Amezcua MD OPERATION PERFORMED: Right total knee arthroplasty. PREOPERATIVE DIAGNOSIS: Right knee osteoarthrosis. POSTOPERATIVE DIAGNOSIS: Right knee osteoarthrosis. ANESTHESIA: Local MAC with spinal. ANESTHESIA PROVIDER: Tesfaye Reeves CRNA. [employer] APPRAISER: Ina Rivera PA-C and Peace Guadalupe LPN. ESTIMATED BLOOD LOSS: 50 mL. COMPLICATIONS: None. CONDITION: Stable. IMPLANTS: 1. Kilbourne size 3 PS femur. 2. Kilbourne size 4 universal tibial base plate. 3. Kilbourne size 4 9 mm PS X3 polyethylene. 4. Damien size 29 x 9 mm cemented patella. DESCRIPTION OF PROCEDURE: The patient was identified in the preop holding area. Proper site was marked and identified by the surgeon. The patient was taken back to the operating theater. After adequate anesthesia, the patient's right lower extremity had a nonsterile tourniquet applied and it was then sterilely prepped and draped in the usual sterile fashion. OR timeout was performed. The patient received 2 g IV Ancef. At this time, right lower extremity was exsanguinated. Tourniquet was insufflated to 300 mmHg. Standard medial parapatellar incision was made. Medial parapatellar arthrotomy was created. Deep fibers of the MCL were raised and anterior fat pad was resected. At this time, attention was turned to the patella. Patella measured 22, it was resected to a 13 for a 29 x 9 mm patella. Drill holes were then drilled and found to be in adequate position. The drill was then drilled in the distal femur and the intramedullary distal femoral cutting guide was then placed. 8 mm was resected off the distal femur and was found to be an adequate resection. Sizing guide was placed. It was found to be a size 3 PS femur that was shown on the implant record at the beginning of this dictation. The drill holes were drilled for the epicondylar axis using Whitesides line and epicondyles as reference. At this time, the 4-in-1 cutting block was placed. An anterior posterior and anterior and posterior chamfer cuts were then completed. The correct size box cut was then placed and the box cut was completed and found to be an adequate resection. Attention was turned to the tibia. The posterior medial lateral retractors were placed. The extramedullary tibial guide was placed. It was placed in the old footprint of the ACL. It was aligned with the center of the ankle and 0 degrees of slope, 9 mm was then resected off the unaffected lateral side. There was found to be an acceptable reduction. At this time, posterior osteophytes were removed along with medial and lateral meniscus. A trial implant was placed with a correct sized tibia that was mentioned at the beginning of the dictation. A Kilbourne size 4 9 mm PS X3 polyethylene was then placed. The patient's knee was brought through range of motion. The patella was tracking centrally and was stable to varus and valgus stress. Alignment was found to be roughly at 0 degrees. At this time, cement was mixed on the back table. The tibia was stamped and drilled in proper rotation. All cut surfaces were irrigated with pulse lavage irrigation with Ancef and then completely dried. Once this was completed, then the cement was ready. The universal tibial base plate was cemented in place. Next, the size 3 PS femur cemented into place and the Damien size 4 9 mm PS X3 polyethylene was placed. The patient's knee was brought into full extension. Excess cement was removed. The patella was then cemented in place at this time. Tourniquet was deflated. One liter dilute Betadine solution was irrigated through the knee along with 3 L of pulse lavage irrigation with Ancef. Periarticular injection was then completed. The patient's knee was brought through a range of motion. Once the cement had time to set up and it was found to be stable to varus valgus stress, the patella was tracking centrally with full range of motion. At this time, a #2 barbed suture was used for closure of the medial parapatellar arthrotomy. Topical tranexamic acid was placed. 2-0 Vicryl was used subcutaneously, a running 3-0 Monocryl was used subcuticularly. The patient tolerated the procedure well and was sent to the PACU in stable condition. JESS /[id number]
== END 2017-08-08 13:55 | disposition home or self-care (01) ==
LOC: JD.SDS 07:58 → JD.MS 14:45 → JD.SDS 08-08 13:55
PROVIDERS: ATTEND Orthopaedic Surgery
DX: M17.11 Unilateral primary osteoarthritis, right knee (principal); I13.0 Hypertensive heart and chronic kidney disease with heart failure and stage 1 through stage 4 chronic kidney disease, or unspecified chronic kidney disease; N18.3 Chronic kidney disease, stage 3 (moderate); I50.9 Heart failure, unspecified; E11.22 Type 2 diabetes mellitus with diabetic chronic kidney disease; K21.9 Gastro-esophageal reflux disease without esophagitis; E78.2 Mixed hyperlipidemia; E03.9 Hypothyroidism, unspecified; E66.9 Obesity, unspecified; G47.30 Sleep apnea, unspecified; M19.90 Unspecified osteoarthritis, unspecified site; M81.0 Age-related osteoporosis without current pathological fracture; Z68.30 Body mass index [BMI] 30.0-30.9, adult; Z96.652 Presence of left artificial knee joint; Z86.010 Personal history of colon polyps; Z90.89 Acquired absence of other organs; Z79.899 Other long term (current) drug therapy; Z79.84 Long term (current) use of oral hypoglycemic drugs; Z79.82 Long term (current) use of aspirin; Z88.8 Allergy status to other drugs, medicaments and biological substances
CPT/HCPCS: 27447; 36415; 64447; 73560; 80053; 82962; 85027; 87641; 97110; 97116; 97162; 97165; 97535; A9270; C1713; C1776; J0171; J0690; J0697; J1630; J1885; J2270; J2405; J2795; J3010; J3370; J3490; J7050; 01402; 64450; J2704

== ENCOUNTER 2021-08-06 17:13 | Emergency (ER) | payer MEDICARE, OTHER ==
[2021-08-06 17:27] VITALS: BP 200/95; PULSE 85
== END 2021-08-06 20:41 | disposition home or self-care (01) ==
LOC: JD.ED 17:13
DX: M79.652 Pain in left thigh (principal); I10 Essential (primary) hypertension; E11.9 Type 2 diabetes mellitus without complications; E03.9 Hypothyroidism, unspecified; E66.9 Obesity, unspecified; Z68.41 Body mass index [BMI] 40.0-44.9, adult; Z88.1 Allergy status to other antibiotic agents; Z88.8 Allergy status to other drugs, medicaments and biological substances; Z79.899 Other long term (current) drug therapy; Z79.82 Long term (current) use of aspirin
CPT/HCPCS: 36415; 80048; 85610; 85730; 93971-26-LT; 93971-LT; 99283-25; 99284

== ENCOUNTER 2021-09-06 07:00 | Day surgery (SDC) | payer MEDICARE, OTHER ==
[~2021-09-06 07:00] MED LIST changes: -Acetaminophen 325 MG Tab PO ONE; -Bupivacaine 0.25% 30 ML SDV ONE; -Iodine/Sodium Iodide 2% Tincture 30 ML Bottle ONE; -Morphine 4 MG/ML Syringe IVPUSH PRN; +Morphine 8 MG, EPINEPHrine 0.3 MG, Cefuroxime 750 MG, Ketorolac 30 MG, Sodium Chloride ... PRN; -Scopolamine 1.5 MG Transdermal Patch TOP SCH; +Sodium Chloride 0.9% 10 ML Syringe FLUSH SCH; -ceFAZolin 1 GM Vial ONE
[2021-09-06] MEDS ORDERED: Sodium Chloride 0.9% 1,000 ML IV SCH (07:30)
[2021-09-06] MEDS ORDERED: Propofol 200 MG/20 ML SDV ONE ×3 (07:33→09:32)
[2021-09-06] MEDS ORDERED: fentaNYL 100 MCG/2 ML SDV ONE (07:34)
[2021-09-06] MEDS ORDERED: Midazolam 1 MG/ML 2 ML SDV ONE (07:34)
[2021-09-06] MEDS ORDERED: Lidocaine 1% 4 ML ONE (07:45)
[2021-09-06] MEDS ORDERED: ceFAZolin 1 GM Vial ONE (07:46)
[2021-09-06] MEDS ORDERED: Acetaminophen/HYDROcodone 325-5 MG Tab PO PRN (08:15)
[2021-09-06] MEDS ORDERED: diphenhydrAMINE 50 MG/ML SDV IVPUSH PRN (08:17)
[2021-09-06] MEDS ORDERED: fentaNYL 100 MCG/2 ML SDV IVPUSH PRN (08:17)
[2021-09-06] MEDS ORDERED: Ondansetron 4 MG/2 ML SDV IVPUSH PRN (08:17)
[2021-09-06] MEDS ORDERED: Sodium Chloride 0.9% 1,000 ML ONE (09:38)
[2021-09-06] MEDS ORDERED: Ondansetron 4 MG/2 ML SDV ONE (12:51)
[2021-09-06 15:49] VITALS: BP 138/78; PULSE 76
== END 2021-09-06 13:20 | disposition home or self-care (01) ==
LOC: JD.SDS 07:00
PROVIDERS: ATTEND Orthopaedic Surgery
DX: M16.11 Unilateral primary osteoarthritis, right hip (principal); E03.9 Hypothyroidism, unspecified; K21.9 Gastro-esophageal reflux disease without esophagitis; E78.2 Mixed hyperlipidemia; I13.0 Hypertensive heart and chronic kidney disease with heart failure and stage 1 through stage 4 chronic kidney disease, or unspecified chronic kidney disease; I50.9 Heart failure, unspecified; G47.33 Obstructive sleep apnea (adult) (pediatric); E11.22 Type 2 diabetes mellitus with diabetic chronic kidney disease; E66.9 Obesity, unspecified; N18.30 Chronic kidney disease, stage 3 unspecified; H54.7 Unspecified visual loss; Z68.37 Body mass index [BMI] 37.0-37.9, adult; Z88.8 Allergy status to other drugs, medicaments and biological substances; Z88.1 Allergy status to other antibiotic agents; Z79.84 Long term (current) use of oral hypoglycemic drugs; Z79.899 Other long term (current) drug therapy; Z79.890 Hormone replacement therapy
CPT/HCPCS: 0055T; 27130; 73501; 82947; 97110; 97116; 97161; A9270; C1713; C1776; J0171; J0690; J0697; J1885; J2250; J2270; J2405; J2704; J3010; J3370; J7030; 01214